=== PATIENT | female | born 1995 | race Caucasian/White ===

== ENCOUNTER 2016-09-06 15:10 | Inpatient (IN) | payer OTHER ==
--- NOTE | 2016-09-06 16:00 | L&D Flow Sheet ---
LD Flowsheet Datetime Report Generated by CPN: 09/06/2016 16:00 Datetime: 09/06/2016 15:57 Uterine Activity Frequency (min): 5 (Darline Michael, RN) Vaginal Bleeding: None (Darline Michael, RN) Datetime: 09/06/2016 15:50 Communication Communication Comments: Dr Taylor reviewed EFM. Plan of care discussed. Will continue to monitor. (Darline Michael, RN) Datetime: 09/06/2016 15:37 Vaginal Exam Dilatation (cm): 1.0 (Darline Rodriguez RN) Effacement (%): 40 (Darline Rodriguez RN) Station: -2 (Darline Rodriguez RN) Exam by: Lance Rodriguez RN (Darline Rodriguez RN) Vaginal Bleeding: None (Darline Rodriguez RN) Cervix, Consistency: Moderate (Darline Rodriguez RN) Cervix, Position: Midposition (Darline Rodriguez RN) Datetime: 09/06/2016 15:33 Vital Signs NBP Sys/Ashleigh/Mean (mmHg): 119 (QS system process) : 76 (QS system process) : 94 (QS system process) Pulse: 120 (QS system process) Respirations: 18 (Darline Rodriguez RN)
[2016-09-06 16:02] LABS: APPEARANCE,URINE CLOUDY; BILIRUBIN,URINE NEGATIVE (NEGATIVE); GLUCOSE, URINE NEGATIVE (NEGATIVE); KETONES,URINE TRACE mg/dL (NEGATIVE); LEUKOCYTE ESTERASE,URINE MODERATE (NEGATIVE); NITRITE,URINE NEGATIVE (NEGATIVE); PROTEIN,URINE 100 mg/dL (NEGATIVE); URINE SPECIFIC GRAVITY 1.026; UROBILINOGEN,URINE NEGATIVE mg/dL (<2.0)
[2016-09-06 16:27] LABS: URINE BARBITURATES SCREEN NEGATIVE; URINE METHADONE SCREEN NEGATIVE; URINE OPIATES LOW NEGATIVE; URINE PHENCYCLIDINE SCREEN NEGATIVE
--- NOTE | 2016-09-06 18:00 | L&D Flow Sheet ---
LD Flowsheet Datetime Report Generated by CPN: 09/06/2016 18:00 Datetime: 09/06/2016 17:29 Communication Comments: Risk benefits of IOL discussed for postdates. Different methods of IOl discussed, questions answered. Family to discuss options and let staff know decision. (Darline Rodriguez RN) Datetime: 09/06/2016 17:27 Dilatation (cm): 1.0 (Darline Rodriguez RN) Effacement (%): 50 (Darline Rodriguez RN) Station: -1 (Darline Rodriguez RN) Exam by: Dr Taylor (Darline Rodriguez, KEVEN) Vaginal Bleeding: None (Darline Rodriguez RN) Cervix, Consistency: Soft (Darline Rodriguez RN) Cervix, Position: Midposition (Darline Rodriguez RN) Dilatation (cm): 1-2 cm (Darline Rodriguez RN) Effacement: 40-50_ effaced (Darline Rodriguez RN) Station: minus 2 (Darline Rodriguez RN) Consistency: Soft (Darline Rodriguez RN) Position: Midposition (Darline Rodriguez RN) Total Alston's Score: 6 (QS system process) : 5-8 = Small percentage of induction failure (QS system process) Datetime: 09/06/2016 17:26 Communication Comments: Dr Stafford at bedside (Darline Rodriguez RN) Datetime: 09/06/2016 17:25 NBP Sys/Ashleigh/Mean (mmHg): 110 (QS system process) : 71 (QS system process) : 86 (QS system process) Pulse: 93 (QS system process) Respirations: 16 (Darline Rodriguez RN) LaborFlag: Antepartum (QS system process) Datetime: 09/06/2016 16:03 Monitor Mode: External; Palpation (Darline Rodriguez RN) Frequency (min): 6-7 (Darline Rodriguez RN) Quality: Mild (Darline Rodriguez RN) Duration (sec): 50-70 (Darline Rodriguez RN) Resting Tone (Palpate): Relaxed (Darline Rodriguez RN) Monitor Mode: External US (Darline Rodriguez RN) FHR Baseline Rate : 120 (Darline Rodriguez RN) Variability: Moderate 6-25 bpm (Darline Rodriguez RN) Accelerations: 15X15 (Darline Rodriguez RN) Decelerations: None (Darline Rodriguez RN) Comments: monitors removed, up to ambulate (Darline Rodriguez RN)
[2016-09-06] MEDS ORDERED: MISOPROSTOL 0.1 MG TABLET PO PRN (18:11)
[2016-09-06] MEDS ORDERED: NALBUPHINE HCL INJ 10 MG/1 ML AMPULE IV PRN (18:11)
[2016-09-06 18:51] LABS: ABSOLUTE BASOPHILS # (AUTO) 0.1 10^3/uL (0.0-0.2); ABSOLUTE EOSINOPHILS # (AUTO) 0.1 10^3/uL (0.0-0.6); ABSOLUTE LYMPHOCYTES (AUTO) 1.6 10^3/uL (0.5-4.7); ABSOLUTE MONOCYTES (AUTO) 0.7 10^3/uL (0.1-1.4); ABSOLUTE NEUT (AUTO) 7.9 10^3/uL (1.7-8.2); BASOPHILS % (AUTO) 0.7 % (0-2); EOSINOPHILS % (AUTO) 0.6 % (0-6); HEMATOCRIT 33.2 % (36.0-47.0); HGB HCT DIFFERENCE -0.2; LYMPHOCYTES % (AUTO) 15.7 % (13-45); MEAN CORPUSCULAR HEMOGLOBIN 29.9 pg (27.0-33.4); MEAN CORPUSCULAR HGB CONC 33.2 g/dL (32.0-36.0); MEAN CORPUSCULAR VOLUME 90 fl (80-97); RED BLOOD COUNT 3.67 10^6/uL (3.72-5.28); WHITE BLOOD COUNT 10.4 10^3/uL (4.0-10.5)
[2016-09-06] MEDS ORDERED: PENICILLIN G POTASSIUM 5,000,000 UNIT in DEXTROSE 5%-WATER 100 ML IV ONE (19:00)
[2016-09-06] MEDS ORDERED: PENICILLIN G-K 5 MILLION UNIT VIAL ONE ×2 (19:14→23:26)
[2016-09-06] MEDS: RINGERS SOLUTION,LACTATED 1,000 ML IV PRN ×2 (19:27→23:47)
[2016-09-06] MEDS ORDERED: NALBUPHINE HCL INJ 10 MG/1 ML AMPULE ONE (19:39)
[2016-09-06] MEDS ORDERED: MISOPROSTOL 0.1 MG TABLET ONE (19:41)
--- NOTE | 2016-09-06 20:00 | L&D Flow Sheet ---
LD Flowsheet Datetime Report Generated by CPN: 09/06/2016 20:00 Datetime: 09/06/2016 19:48 Analgesics/Sedatives: Nubain (mg) @ 10 (Adri Lattibeaudeir, RN) Cervical Ripening Agents: Cytotec @ 50 mcg (Adri Lattibeaudeir, RN) Datetime: 09/06/2016 19:30 Monitor Mode: External; Palpation (Darline Rodriguez RN) Frequency (min): Irreg (Darline Rodriguez RN) Quality: Mild (Darline Michael, RN) Duration (sec): 50-70 (Darline Rodriguez RN) Resting Tone (Palpate): Relaxed (Darline Rodriguez RN) Monitor Mode: External US (Darline Rodriguez RN) FHR Baseline Rate : 120 (Darline Rodriguez RN) Variability: Moderate 6-25 bpm (Darline Rodriguez, RN) Accelerations: 15X15 (Darline Rodriguez RN) Decelerations: None (Darline Rodriguez RN) Datetime: 09/06/2016 19:20 Dilatation (cm): 1.0 (Darline Rodriguez RN) Effacement (%): 50 (Darline Rodriguez RN) Station: -1 (Darline Rodriguez RN) Exam by: Dr Taylor (Darline Rodriguez RN) Cervix, Consistency: Soft (Darline Rodriguez RN) Cervix, Position: Midposition (Darline Rodriguez RN) Vaginal Exam Comments: Cooks catheter placed w/ 80ml saline in each bulb (Darline Rodriguez RN) Antibiotics: Penicillin IV (Units) @ 5million units IVPB (Darline Rodriguez RN) Datetime: 09/06/2016 19:09 I/O Interventions: Up to BR (Darline Michael, RN) Datetime: 09/06/2016 19:00 Monitor Mode: External; Palpation (Darline Michael, RN) Frequency (min): 6-7 (Darline Michael, RN) Quality: Mild (Darline Michael, RN) Duration (sec): 50-70 (Darline Michael, RN) Resting Tone (Palpate): Relaxed (Darline Michael, RN) Monitor Mode: External US (Darline Michael, RN) FHR Baseline Rate : 120 (Darline Michael, RN) Variability: Moderate 6-25 bpm (Darline Michael, RN) Accelerations: 15X15 (Darline Michael, RN) Decelerations: None (Darline Michael, RN) Datetime: 09/06/2016 18:48 IV/Blood Work: IV Started; IV Infusing per Order; New IV Bag Hung; IV Bag Number @ 1 (Darline Michael, RN) Datetime: 09/06/2016 18:30 Monitor Mode: External; Palpation (Darline Michael, RN) Frequency (min): 6-7 (Darline Michael, RN) Quality: Mild (Darline Michael, RN) Duration (sec): 50-70 (Darline Michael, RN) Resting Tone (Palpate): Relaxed (Darline Michael, RN) Monitor Mode: External US (Darline Michael, RN) FHR Baseline Rate : 120 (Darline Michael, RN) Variability: Moderate 6-25 bpm (Darline Michael, RN) Accelerations: 15X15 (Darline Michael, RN) Decelerations: None (Darline Michael, RN) Datetime: 09/06/2016 18:00 Monitor Mode: External; Palpation (Darline Michael, RN) Frequency (min): Irreg (Darline Michael, RN) Quality: Mild (Darline Michael, RN) Duration (sec): 50-70 (Darline Michael, RN) Resting Tone (Palpate): Relaxed (Darline Michael, RN) Monitor Mode: External US (Darline Michael, RN) FHR Baseline Rate : 120 (Darline Rodriguez RN) Variability: Moderate 6-25 bpm (Darline Rodriguez RN) Accelerations: 15X15 (Darline Rodriguez RN) Decelerations: None (Darline Rodriguez RN)
--- NOTE | 2016-09-06 22:00 | L&D Flow Sheet ---
LD Flowsheet Datetime Report Generated by CPN: 09/06/2016 22:00 Datetime: 09/06/2016 21:59 Pulse: 92 (QS system process) Pulse: 87 (QS system process) SpO2 (%): 98 (QS system process) SpO2 (%): 93 (QS system process) LaborFlag: Antepartum (QS system process) Datetime: 09/06/2016 21:54 Pulse: 95 (QS system process) SpO2 (%): 99 (QS system process) LaborFlag: Antepartum (QS system process) Datetime: 09/06/2016 21:49 Pulse: 93 (QS system process) SpO2 (%): 98 (QS system process) LaborFlag: Antepartum (QS system process) Datetime: 09/06/2016 21:44 Pulse: 88 (QS system process) SpO2 (%): 98 (QS system process) LaborFlag: Antepartum (QS system process) Datetime: 09/06/2016 21:39 Pulse: 83 (QS system process) SpO2 (%): 96 (QS system process) LaborFlag: Antepartum (QS system process) Datetime: 09/06/2016 21:34 Pulse: 80 (QS system process) SpO2 (%): 97 (QS system process) LaborFlag: Antepartum (QS system process) Datetime: 09/06/2016 21:29 Pulse: 84 (QS system process) SpO2 (%): 97 (QS system process) LaborFlag: Antepartum (QS system process) Datetime: 09/06/2016 21:24 Pulse: 83 (QS system process) SpO2 (%): 96 (QS system process) LaborFlag: Antepartum (QS system process) Datetime: 09/06/2016 21:19 Pulse: 81 (QS system process) SpO2 (%): 97 (QS system process) LaborFlag: Antepartum (QS system process) Datetime: 09/06/2016 21:14 Pulse: 81 (QS system process) SpO2 (%): 96 (QS system process) LaborFlag: Antepartum (QS system process) Datetime: 09/06/2016 21:09 Pulse: 78 (QS system process) SpO2 (%): 97 (QS system process) LaborFlag: Antepartum (QS system process)
[2016-09-06] MEDS ORDERED: FENTANYL/BUPIVACAINE/NS/PF 200 MCG/100 ML RTUINJ EPI ONE (22:33)
[2016-09-06] MEDS ORDERED: EPHEDRINE SULFATE INJ 50 MG/1 ML AMPULE ONE (22:33)
[2016-09-06] MEDS ORDERED: BUPIVACAINE HCL 0.25 % INJ/PF (2.5 MG/1 ML) 30 ML VIAL ONE (22:34)
[2016-09-06] MEDS: PENICILLIN G POTASSIUM 2,500,000 UNIT in DEXTROSE 5%-WATER 50 ML IV SCH (23:47)
[2016-09-06] MEDS ORDERED: ONDANSETRON HCL INJ/PF 4 MG/2 ML SDV ONE (23:49)
[2016-09-07] MEDS ORDERED: EPHEDRINE SULFATE INJ 50 MG/1 ML AMPULE IV PRN (00:08)
[2016-09-07] MEDS ORDERED: BENZOIN/ALOE VERA/STORAX/TOLU TINCTURE 60 ML TP PRN (00:08)
[2016-09-07] MEDS ORDERED: BUPIVACAINE HCL 0.25 % INJ/PF (2.5 MG/1 ML) 30 ML VIAL INFIL ONE (00:08)
[2016-09-07] MEDS ORDERED: EPHEDRINE SULFATE INJ 50 MG/1 ML AMPULE IV ONE (00:08)
[2016-09-07] MEDS ORDERED: OXYTOCIN/NORMAL SALINE 20 UNIT/1,000 ML RTUINJ ONE ×2 (03:01→14:53)
[2016-09-07] MEDS ORDERED: OXYTOCIN/NORMAL SALINE 1,000 ML IV PRN ×3 (03:03→14:47)
[2016-09-07] MEDS: FENTANYL/BUPIVACAINE/NS/PF 100 ML EPI PRN ×3 (03:18→08:01)
[2016-09-07] MEDS ORDERED: PENICILLIN G-K 5 MILLION UNIT VIAL ONE ×3 (03:20→11:06)
[2016-09-07] MEDS: DEXTROSE 5%-LACTATED RINGERS 1,000 ML IV PRN ×2 (04:11→08:01)
[2016-09-07] MEDS: PENICILLIN G POTASSIUM 2,500,000 UNIT in DEXTROSE 5%-WATER 50 ML IV SCH ×2 (04:15→06:50)
[2016-09-07] MEDS: RINGERS SOLUTION,LACTATED 1,000 ML IV PRN (04:16)
[2016-09-07] MEDS ORDERED: ONDANSETRON HCL INJ/PF 4 MG/2 ML SDV IV ONE (07:58)
--- NOTE | 2016-09-07 08:01 | L&D Flow Sheet ---
LD Flowsheet Datetime Report Generated by CPN: 09/07/2016 08:00 Datetime: 09/07/2016 07:55 Provider Reviewed Strip: Yes (Jhonny Taylor RN) Strip Reviewed by: Dr Taylor (Jhonny Taylor RN) Provider Notified (Name): Dr Taylor (Jhonny Taylor RN) Notification Reason: Status Update; Status; Labor Status; Uterine Activity (Jhonny Taylor RN) Communication Comments: Dr Taylor updated on pt; notified of emesis x1; orders for zofran 4mg IVP now; may increase pitocin as ordered. (Jhonny Taylor RN) Datetime: 09/07/2016 07:53 Temperature (F): 98.6 (Jhonny Taylor RN) Temperature (C): 37.0 (QS system process) LaborFlag: Antepartum (QS system process) Datetime: 09/07/2016 07:51 NBP Sys/Ashleigh/Mean (mmHg): 101 (QS system process) : 61 (QS system process) : 71 (QS system process) Pulse: 81 (QS system process) LaborFlag: Antepartum (QS system process) Datetime: 09/07/2016 07:48 Instructional Method: Demo; Verbal; Patient Instructed; Family/Support Person Instructed; Verbalized Understanding (Jhonny Taylor RN) Plan of Care: Plan of Care Discussed; Vaginal Delivery; Induction (Jhonny Taylor RN) Unit Routine: Mallard to Room; Call Stephens; Bed; Visiting Policy; Waiting Areas; Security; Phone/Cell Phone Use; Photography; Unit Personnel; Handwashing; Flu/Illness Precautions; Monitoring; IV Pumps; Safety/Fall Risk Prevention; Diet/Nutrition Services; Routine Time Outs; Medications (Jhonny Taylor RN) Labor/Induction: Labor Stages; Induction; Antibiotic Use (Jhonny Taylor RN) Pain Management: Epidural; PRN Medications; Pain Scale/Goals; Comfort Measures (Jhonny Taylor RN) Medications: Antibiotics; Pitocin (Jhonny Taylor RN) Related: Common Discomforts of ; Maternal Physical Changes; Maternal Emotional Changes; Nutrition; Hydration; Activity and Rest (Jhonny Taylor RN) Datetime: 09/07/2016 07:40 Patient Position/Activity: Left Lateral (Jhonny Taylor RN) Datetime: 09/07/2016 07:39 Pain Presence: None/Denies (Jhonny Taylor RN) Pain Relief Measures: Epidural Given (Jhonny Taylor RN) Dilatation (cm): 5.0 (Jhonny Taylor RN) Effacement (%): 70 (Jhonny Taylor RN) Station: -1 (Jhonny Taylor, RN) Exam by: Carmel Taylor RN (Jhonny Taylor, RN) Vaginal Bleeding: Normal Show (Jhonny Taylor RN) Cervix, Consistency: Soft (Jhonny Taylor RN) Cervix, Position: Midposition (Jhonny Taylor, RN) IV/Blood Work: New IV Bag Hung (Jhonny Taylor, RN) Hygiene: Hayde Care; Underpad Changed; Peripad Changed; Gown Changed (Jhonny Taylor, RN) I/O Interventions: Ice Chips Given (Jhonny Taylor, RN) Patient Care Comments: LR 125ml/hr (Jhonny Taylor, KEVEN) Anesthesia Level Check: T10- Umbilicus (Jhonny Taylor, KEVEN) Communication: RN at Bedside; RN Reviewed Strip (Jhonny Taylor RN) LaborFlag: Antepartum (QS system process) Datetime: 09/07/2016 07:27 Communication Comments: Report given to Sarah Taylor RN and care relinquished. (Adri Mariscal RN) Datetime: 09/07/2016 07:15 Monitor Mode: External (Adri Lattibeaudeir, RN) Frequency (min): 2.5-3.5 (Adri Lattibeaudeir, RN) Quality: Mild/Moderate (Adri Lattibeaudeir, RN) Duration (sec): 60-80 (Adri Lattibeaudeir, RN) Resting Tone (Palpate): Relaxed (Adri Lattibeaudeir, RN) Monitor Mode: External US (Adri Lattibeaudeir, RN) FHR Baseline Rate : 115 (Adri Lattibeaudeir, RN) Variability: Moderate 6-25 bpm (Adri Lattibeaudeir, RN) Accelerations: 15X15 (Adri Lattibeaudeir, RN) Decelerations: Early (Adri Lattibeaudeir, RN) Pitocin (milliunit): Pitocin Remains (milliunits) @ 8 (Adri Lattibeaudeir, RN) Datetime: 09/07/2016 07:00 Monitor Mode: External (Adri Lattibeaudeir, RN) Frequency (min): 2-3 (Adri Lattibeaudeir, RN) Quality: Mild/Moderate (Adri Lattibeaudeir, RN) Duration (sec): 60-80 (Adri Lattibeaudeir, RN) Resting Tone (Palpate): Relaxed (Adri Lattibeaudeir, RN) Monitor Mode: External US (Adri Lattibeaudeir, RN) FHR Baseline Rate : 115 (Adri Lattibeaudeir, RN) Variability: Moderate 6-25 bpm (Adri Lattibeaudeir, RN) Accelerations: 15X15 (Adri Lattibeaudeir, RN) Decelerations: Early (Adri Lattibeaudeir, RN) Pitocin (milliunit): Pitocin Increased to (milliunits) @ 8 (Adri Lattibeaudeir, RN) Antibiotics: Penicillin IV (Units) @ 2.5 million units (Adri Lattibeaudeir, RN) Datetime: 09/07/2016 06:58 Communication Comments: Dr. Taylor reviewed strip and stated okay to increase pitocin. (Adri Lattibeaudeir, RN) Datetime: 09/07/2016 06:57 NBP Sys/Ashleigh/Mean (mmHg): 92 (QS system process) : 54 (QS system process) : 67 (QS system process) Pulse: 77 (QS system process) LaborFlag: Antepartum (QS system process) Datetime: 09/07/2016 06:45 Monitor Mode: External (Adri Lattibeaudeir, RN) Frequency (min): 1.5-5 (Adri Lattibeaudeir, RN) Quality: Mild/Moderate (Adri Lattibeaudeir, RN) Duration (sec): 50-70 (Adri Lattibeaudeir, RN) Resting Tone (Palpate): Relaxed (Adri Lattibeaudeir, RN) Monitor Mode: External US (Adri Lattibeaudeir, RN) FHR Baseline Rate : 110 (Adri Lattibeaudeir, RN) Variability: Moderate 6-25 bpm (Adri Lattibeaudeir, RN) Accelerations: 15X15 (Adri Lattibeaudeir, RN) Decelerations: Early (Adri Lattibeaudeir, RN) Pitocin (milliunit): Pitocin Remains (milliunits) @ 6 (Adri Lattibeaudeir, RN) Datetime: 09/07/2016 06:42 NBP Sys/Ashleigh/Mean (mmHg): 93 (QS system process) : 60 (QS system process) : 71 (QS system process) Pulse: 73 (QS system process) LaborFlag: Antepartum (QS system process) Datetime: 09/07/2016 06:30 Monitor Mode: External (Adri Lattibeaudeir, RN) Frequency (min): 1.5-6 (Adri Lattibeaudeir, RN) Quality: Mild/Moderate (Adri Lattibeaudeir, RN) Duration (sec): 50-80 (Adri Lattibeaudeir, RN) Resting Tone (Palpate): Relaxed (Adri Lattibeaudeir, RN) Monitor Mode: External US (Adri Lattibeaudeir, RN) FHR Baseline Rate : 110 (Adri Lattibeaudeir, RN) Variability: Moderate 6-25 bpm (Adri Lattibeaudeir, RN) Accelerations: None (Adri Lattibeaudeir, RN) Decelerations: Early; Prolonged (Annotations: prolonged decel x with stacked contractions) (Adri Lattibeaudeir, RN) Pitocin (milliunit): Pitocin Remains (milliunits) @ 6 (Adri Lattibeaudeir, RN) Datetime: 09/07/2016 06:27 NBP Sys/Ashleigh/Mean (mmHg): 93 (QS system process) : 56 (QS system process) : 69 (QS system process) Pulse: 76 (QS system process) LaborFlag: Antepartum (QS system process) Datetime: 09/07/2016 06:15 Monitor Mode: External (Adri Lattibeaudeir, RN) Frequency (min): 2-4 (Adri Lattibeaudeir, RN) Quality: Mild/Moderate (Adri Lattibeaudeir, RN) Duration (sec): 50-70 (Adri Lattibeaudeir, RN) Resting Tone (Palpate): Relaxed (Adri Lattibeaudeir, RN) Monitor Mode: External US (Adri Lattibeaudeir, RN) FHR Baseline Rate : 110 (Adri Lattibeaudeir, RN) Variability: Moderate 6-25 bpm (Adri Lattibeaudeir, RN) Accelerations: 15X15 (Adri Lattibeaudeir, RN) Decelerations: Early (Adri Lattibeaudeir, RN) Pitocin (milliunit): Pitocin Remains (milliunits) @ 6 (Adri Lattibeaudeir, RN) Datetime: 09/07/2016 06:12 NBP Sys/Ashleigh/Mean (mmHg): 90 (QS system process) : 51 (QS system process) : 65 (QS system process) Pulse: 76 (QS system process) LaborFlag: Antepartum (QS system process) Datetime: 09/07/2016 06:00 Monitor Mode: External (Adri Lattibeaudeir, RN) Frequency (min): 1.5-4.5 (Adri Lattibeaudeir, RN) Quality: Mild/Moderate (Adri Lattibeaudeir, RN) Duration (sec): 60-80 (Adri Lattibeaudeir, RN) Resting Tone (Palpate): Relaxed (Adri Lattibeaudeir, RN) Monitor Mode: External US (Adri Lattibeaudeir, RN) FHR Baseline Rate : 115 (Adri Lattibeaudeir, RN) Variability: Moderate 6-25 bpm (Adri Lattibeaudeir, RN) Accelerations: 15X15 (Adri Lattibeaudeir, RN) Decelerations: Early (Adri Lattibeaudeir, RN) Pitocin (milliunit): Pitocin Remains (milliunits) @ 6 (Adri Lattibeaudeir, RN) Datetime: 09/07/2016 05:57 NBP Sys/Ashleigh/Mean (mmHg): 90 (QS system process) : 54 (QS system process) : 67 (QS system process) Pulse: 80 (QS system process) LaborFlag: Antepartum (QS system process) Datetime: 09/07/2016 05:45 Monitor Mode: External (Adir Lattibeaudeir, RN) Frequency (min): 2-4 (Adri Lattibeaudeir, RN) Quality: Mild/Moderate (Adri Lattibeaudeir, RN) Duration (sec): 50-70 (Adri Lattibeaudeir, RN) Resting Tone (Palpate): Relaxed (Adri Lattibeaudeir, RN) Monitor Mode: External US (Adri Lattibeaudeir, RN) FHR Baseline Rate : 115 (Adri Lattibeaudeir, RN) Variability: Moderate 6-25 bpm (Adri Lattibeaudeir, RN) Accelerations: 15X15 (Adri Lattibeaudeir, RN) Pitocin (milliunit): Pitocin Remains (milliunits) @ 6 (Adri Lattibeaudeir, RN) Datetime: 09/07/2016 05:43 NBP Sys/Ashleigh/Mean (mmHg): 89 (QS system process) : 50 (QS system process) : 63 (QS system process) Pulse: 79 (QS system process) LaborFlag: Antepartum (QS system process) Datetime: 09/07/2016 05:37 Pitocin (milliunit): Pitocin Increased to (milliunits) @ 6 (Adri Lattibeaudeir, RN) Datetime: 09/07/2016 05:30 Monitor Mode: External (Adri Lattibeaudeir, RN) Frequency (min): 2-4 (Adri Lattibeaudeir, RN) Quality: Mild/Moderate (Adri Lattibeaudeir, RN) Duration (sec): 60-80 (Adri Lattibeaudeir, RN) Resting Tone (Palpate): Relaxed (Adri Lattibeaudeir, RN) Monitor Mode: External US (Adri Lattibeaudeir, RN) FHR Baseline Rate : 110 (Adri Lattibeaudeir, RN) Variability: Moderate 6-25 bpm (Adri Lattibeaudeir, RN) Accelerations: 15X15 (Adri Lattibeaudeir, RN) Pitocin (milliunit): Pitocin Remains (milliunits) @ 4 (Adri Lattibeaudeir, RN) Datetime: 09/07/2016 05:27 NBP Sys/Ashleigh/Mean (mmHg): 92 (QS system process) : 54 (QS system process) : 66 (QS system process) Pulse: 74 (QS system process) LaborFlag: Antepartum (QS system process) Datetime: 09/07/2016 05:15 Monitor Mode: External (Adri Lattibeaudeir, RN) Frequency (min): 2-4 (Adri Lattibeaudeir, RN) Quality: Mild/Moderate (Adri Lattibeaudeir, RN) Duration (sec): 60-80 (Adri Lattibeaudeir, RN) Resting Tone (Palpate): Relaxed (Adri Lattibeaudeir, RN) Monitor Mode: External US (Adri Lattibeaudeir, RN) FHR Baseline Rate : 110 (Adri Lattibeaudeir, RN) Variability: Moderate 6-25 bpm (Adri Lattibeaudeir, RN) Decelerations: Early (Adri Lattibeaudeir, RN) Pitocin (milliunit): Pitocin Remains (milliunits) @ 4 (Adri Lattibeaudeir, RN) Datetime: 09/07/2016 05:12 NBP Sys/Ashleigh/Mean (mmHg): 96 (QS system process) : 57 (QS system process) : 70 (QS system process) Pulse: 77 (QS system process) LaborFlag: Antepartum (QS system process) Datetime: 09/07/2016 04:59 Monitor Mode: External (Adri Lattibeaudeir, RN) Frequency (min): 3-5 (Adri Lattibeaudeir, RN) Quality: Mild/Moderate (Adri Lattibeaudeir, RN) Duration (sec): 50-80 (Adri Lattibeaudeir, RN) Resting Tone (Palpate): Relaxed (Adri Lattibeaudeir, RN) Monitor Mode: External US (Adri Lattibeaudeir, RN) FHR Baseline Rate : 110 (Adri Lattibeaudeir, RN) Variability: Moderate 6-25 bpm (Adri Lattibeaudeir, RN) Pitocin (milliunit): Pitocin Remains (milliunits) @ 4 (Adri Lattibeaudeir, RN) Datetime: 09/07/2016 04:57 NBP Sys/Ashleigh/Mean (mmHg): 92 (QS system process) : 56 (QS system process) : 69 (QS system process) Pulse: 69 (QS system process) LaborFlag: Antepartum (QS system process) Datetime: 09/07/2016 04:53 Pitocin (milliunit): Pitocin Increased to (milliunits) @ 4 (Adri Lattibeaudeir, RN) Datetime: 09/07/2016 04:45 Monitor Mode: External (Adri Lattibeaudeir, RN) Frequency (min): 2-5.5 (Adri Lattibeaudeir, RN) Quality: Mild/Moderate (Adri Lattibeaudeir, RN) Duration (sec): 60-80 (Adri Lattibeaudeir, RN) Resting Tone (Palpate): Relaxed (Adri Lattibeaudeir, RN) Monitor Mode: External US (Adri Lattibeaudeir, RN) FHR Baseline Rate : 110 (Adri Lattibeaudeir, RN) Variability: Moderate 6-25 bpm (Adri Lattibeaudeir, RN) Accelerations: 15X15 (Adri Lattibeaudeir, RN) Decelerations: Early (Adri Lattibeaudeir, RN) Pitocin (milliunit): Pitocin Remains (milliunits) @ 2 (Adri Lattibeaudeir, RN) Datetime: 09/07/2016 04:42 NBP Sys/Ashleigh/Mean (mmHg): 91 (QS system process) : 54 (QS system process) : 66 (QS system process) Pulse: 77 (QS system process) LaborFlag: Antepartum (QS system process) Datetime: 09/07/2016 04:30 Monitor Mode: External (Adri Lattibeaudeir, RN) Frequency (min): 5 (Adri Lattibeaudeir, RN) Quality: Mild/Moderate (Adri Lattibeaudeir, RN) Duration (sec): 60-80 (Adri Lattibeaudeir, RN) Resting Tone (Palpate): Relaxed (Adri Lattibeaudeir, RN) Monitor Mode: External US (Adri Lattibeaudeir, RN) FHR Baseline Rate : 115 (Adri Lattibeaudeir, RN) Variability: Moderate 6-25 bpm (Adri Lattibeaudeir, RN) Accelerations: 15X15 (Adri Lattibeaudeir, RN) Pitocin (milliunit): Pitocin Remains (milliunits) @ 2 (Adri Lattibeaudeir, RN) Datetime: 09/07/2016 04:28 NBP Sys/Ashleigh/Mean (mmHg): 95 (QS system process) : 55 (QS system process) : 69 (QS system process) Pulse: 73 (QS system process) LaborFlag: Antepartum (QS system process) Datetime: 09/07/2016 04:15 Monitor Mode: External (Adri Lattibeaudeir, RN) Frequency (min): 6-7 (Adri Lattibeaudeir, RN) Quality: Mild/Moderate (Adri Lattibeaudeir, RN) Duration (sec): 60-90 (Adri Lattibeaudeir, RN) Resting Tone (Palpate): Relaxed (Adri Lattibeaudeir, RN) Monitor Mode: External US (Adri Lattibeaudeir, RN) FHR Baseline Rate : 115 (Adri Lattibeaudeir, RN) Variability: Moderate 6-25 bpm (Adri Lattibeaudeir, RN) Accelerations: 15X15 (Adri Lattibeaudeir, RN) Pitocin (milliunit): Pitocin Remains (milliunits) @ 2 (Adri Lattibeaudeir, RN) Datetime: 09/07/2016 04:13 NBP Sys/Ashleigh/Mean (mmHg): 105 (QS system process) : 55 (QS system process) : 73 (QS system process) Pulse: 86 (QS system process) LaborFlag: Antepartum (QS system process) Datetime: 09/07/2016 04:09 Pitocin (milliunit): Pitocin Started (milliunits) @ 2 (Adri Lattibeaudeir, RN) Datetime: 09/07/2016 04:00 Monitor Mode: External (Adri Lattibeaudeir, RN) Frequency (min): 5-7.5 (Adri Lattibeaudeir, RN) Quality: Mild/Moderate (Adri Lattibeaudeir, RN) Duration (sec): 60-90 (Adri Lattibeaudeir, RN) Resting Tone (Palpate): Relaxed (Adri Lattibeaudeir, RN) Monitor Mode: External US (Adri Lattibeaudeir, RN) FHR Baseline Rate : 110 (Adri Lattibeaudeir, RN) Variability: Moderate 6-25 bpm (Adri Lattibeaudeir, RN) Accelerations: 15X15 (Adri Lattibeaudeir, RN) Datetime: 09/07/2016 03:57 NBP Sys/Ashleigh/Mean (mmHg): 94 (QS system process) : 61 (QS system process) : 72 (QS system process) Pulse: 84 (QS system process) LaborFlag: Antepartum (QS system process) Datetime: 09/07/2016 03:43 NBP Sys/Ashleigh/Mean (mmHg): 97 (QS system process) : 60 (QS system process) : 73 (QS system process) Pulse: 77 (QS system process) LaborFlag: Antepartum (QS system process) Datetime: 09/07/2016 03:30 Monitor Mode: External (Adri Lattibeaudeir, RN) Frequency (min): 5-10 (Adri Lattibeaudeir, RN) Quality: Mild/Moderate (Adri Lattibeaudeir, RN) Duration (sec): 60-90 (Adri Lattibeaudeir, RN) Resting Tone (Palpate): Relaxed (Adri Lattibeaudeir, RN) Monitor Mode: External US (Adri Lattibeaudeir, RN) FHR Baseline Rate : 110 (Adri Lattibeaudeir, RN) Variability: Moderate 6-25 bpm (Adri Lattibeaudeir, RN) Accelerations: 15X15 (Adri Lattibeaudeir, RN) Datetime: 09/07/2016 03:27 NBP Sys/Ashleigh/Mean (mmHg): 94 (QS system process) : 57 (QS system process) : 69 (QS system process) Pulse: 72 (QS system process) LaborFlag: Antepartum (QS system process) Datetime: 09/07/2016 03:12 NBP Sys/Ashleigh/Mean (mmHg): 92 (QS system process) : 58 (QS system process) : 70 (QS system process) Pulse: 80 (QS system process) LaborFlag: Antepartum (QS system process) Datetime: 09/07/2016 03:03 Communication Comments: Order received from Dr. Taylor to start Pitocin at 2 mu/min. (Adri Mariscal, KEVEN) Datetime: 09/07/2016 03:00 Monitor Mode: External (Adri Mariscal, RN) Frequency (min): 5.5-6.5 (Adri Mariscal RN) Quality: Mild/Moderate (Adri Lattibeaudeir, RN) Duration (sec): 70-90 (Adri Lattibeaudeir, RN) Resting Tone (Palpate): Relaxed (Adri Lattibeaudeir, RN) Monitor Mode: External US (Adri Lattibeaudeir, RN) FHR Baseline Rate : 110 (Adri Lattibeaudeir, RN) Variability: Moderate 6-25 bpm (Adri Lattibeaudeir, RN) Accelerations: 15X15 (Adri Lattibeaudeir, RN) Datetime: 09/07/2016 02:55 Dilatation (cm): 5.5 (Adri Lattibeareillyir, RN) Effacement (%): 75 (Adri Mariscal, RN) Station: -2 (Adri Mariscal, RN) Exam by: Dr. Taylor (Adri Mariscal, RN) Membrane Status: Ruptured (Adri Isbelltibisrael, RN) Membranes Ruptured Date/Time: 09/07/2016 02:55 (Kimberly Sr RN) Membranes Rupture Method: Artificial (Adri Lattibeaudeir, RN) Amniotic Fluid Color: Clear (Adri Lattibeaudeir, RN) Amniotic Fluid Amount: Moderate (Ardi Lattibeaudeir, RN) Datetime: 09/07/2016 02:51 NBP Sys/Ashleigh/Mean (mmHg): 95 (QS system process) : 59 (QS system process) : 72 (QS system process) Pulse: 81 (QS system process) LaborFlag: Antepartum (QS system process) Datetime: 09/07/2016 02:46 NBP Sys/Ashleigh/Mean (mmHg): 97 (QS system process) : 58 (QS system process) : 73 (QS system process) Pulse: 80 (QS system process) LaborFlag: Antepartum (QS system process) Datetime: 09/07/2016 02:41 NBP Sys/Ashleigh/Mean (mmHg): 92 (QS system process) : 61 (QS system process) : 72 (QS system process) Pulse: 82 (QS system process) LaborFlag: Antepartum (QS system process) Datetime: 09/07/2016 02:36 NBP Sys/Ashleigh/Mean (mmHg): 90 (QS system process) : 60 (QS system process) : 70 (QS system process) Pulse: 82 (QS system process) LaborFlag: Antepartum (QS system process) Datetime: 09/07/2016 02:31 NBP Sys/Ashleigh/Mean (mmHg): 94 (QS system process) : 66 (QS system process) : 75 (QS system process) Pulse: 96 (QS system process) LaborFlag: Antepartum (QS system process) Datetime: 09/07/2016 02:30 Monitor Mode: External (Adri Lattibeaudeir, RN) Frequency (min): 6-8.5 (Adri Lattibeaudeir, RN) Quality: Mild/Moderate (Adri Lattibeaudeir, RN) Duration (sec): 80-100 (Adri Lattibeaudeir, RN) Resting Tone (Palpate): Relaxed (Adri Lattibeaudeir, RN) Monitor Mode: External US (Adri Lattibeaudeir, RN) FHR Baseline Rate : 115 (Adri Lattibeaudeir, RN) Variability: Moderate 6-25 bpm (Adri Lattibeaudeir, RN) Accelerations: 15X15 (Adri Lattibeaudeir, RN) Datetime: 09/07/2016 02:27 NBP Sys/Ashleigh/Mean (mmHg): 92 (QS system process) : 66 (QS system process) : 75 (QS system process) Pulse: 81 (QS system process) LaborFlag: Antepartum (QS system process) Datetime: 09/07/2016 02:23 NBP Sys/Ashleigh/Mean (mmHg): 94 (QS system process) : 59 (QS system process) : 71 (QS system process) Pulse: 77 (QS system process) LaborFlag: Antepartum (QS system process) Datetime: 09/07/2016 02:16 NBP Sys/Ashleigh/Mean (mmHg): 87 (QS system process) : 55 (QS system process) : 66 (QS system process) Pulse: 80 (QS system process) LaborFlag: Antepartum (QS system process) Datetime: 09/07/2016 02:11 NBP Sys/Ashleigh/Mean (mmHg): 91 (QS system process) : 55 (QS system process) : 68 (QS system process) Pulse: 81 (QS system process) LaborFlag: Antepartum (QS system process) Datetime: 09/07/2016 02:08 NBP Sys/Ashleigh/Mean (mmHg): 92 (QS system process) : 57 (QS system process) : 67 (QS system process) Pulse: 76 (QS system process) LaborFlag: Antepartum (QS system process) Datetime: 09/07/2016 02:01 NBP Sys/Ashleigh/Mean (mmHg): 93 (QS system process) : 60 (QS system process) : 71 (QS system process) Pulse: 79 (QS system process) LaborFlag: Antepartum (QS system process) Datetime: 09/07/2016 02:00 Monitor Mode: External (Adri Isbelltibisrale RN) Frequency (min): 5-6 (Adri Mariscal RN) Quality: Mild/Moderate (Adri Lattibeaudeir, RN) Duration (sec): 70-100 (Adri Lattibeaudeir, RN) Resting Tone (Palpate): Relaxed (Adri Lattibeaudeir, RN) Monitor Mode: External US (Adri Lattibeaudeir, RN) FHR Baseline Rate : 115 (Adri Lattibeaudeir, RN) Variability: Moderate 6-25 bpm (Adri Lattibeaudeir, RN) Accelerations: 15X15 (Adri Lattibeaudeir, RN) Datetime: 09/07/2016 01:57 NBP Sys/Ashleigh/Mean (mmHg): 88 (QS system process) : 54 (QS system process) : 65 (QS system process) Pulse: 81 (QS system process) LaborFlag: Antepartum (QS system process) Datetime: 09/07/2016 01:51 NBP Sys/Ashleigh/Mean (mmHg): 96 (QS system process) : 53 (QS system process) : 69 (QS system process) Pulse: 74 (QS system process) LaborFlag: Antepartum (QS system process) Datetime: 09/07/2016 01:46 NBP Sys/Ashleigh/Mean (mmHg): 91 (QS system process) : 54 (QS system process) : 67 (QS system process) Pulse: 81 (QS system process) LaborFlag: Antepartum (QS system process) Datetime: 09/07/2016 01:41 NBP Sys/Ashleigh/Mean (mmHg): 93 (QS system process) : 55 (QS system process) : 68 (QS system process) Pulse: 83 (QS system process) LaborFlag: Antepartum (QS system process) Datetime: 09/07/2016 01:37 NBP Sys/Ashleigh/Mean (mmHg): 89 (QS system process) : 54 (QS system process) : 66 (QS system process) Pulse: 77 (QS system process) LaborFlag: Antepartum (QS system process) Datetime: 09/07/2016 01:32 NBP Sys/Ashleigh/Mean (mmHg): 99 (QS system process) : 64 (QS system process) : 76 (QS system process) Pulse: 76 (QS system process) LaborFlag: Antepartum (QS system process) Datetime: 09/07/2016 01:30 Monitor Mode: External (Adri Mariscal RN) Frequency (min): 5.5-7 (Adri Mariscal RN) Quality: Mild/Moderate (Adri Mariscal RN) Duration (sec): 60-90 (Adri Mariscal RN) Resting Tone (Palpate): Relaxed (Adri Mariscal RN) Monitor Mode: External US (Adri Lattibeaudeir, RN) FHR Baseline Rate : 115 (Adri Lattibeaudeir, RN) Variability: Moderate 6-25 bpm (Adri Lattibeaudeir, RN) Accelerations: 15X15 (Adri Lattibeaudeir, RN) Datetime: 09/07/2016 01:27 NBP Sys/Ashleigh/Mean (mmHg): 93 (QS system process) : 58 (QS system process) : 70 (QS system process) Pulse: 80 (QS system process) LaborFlag: Antepartum (QS system process) Datetime: 09/07/2016 01:23 NBP Sys/Ashleigh/Mean (mmHg): 94 (QS system process) : 55 (QS system process) : 69 (QS system process) Pulse: 90 (QS system process) LaborFlag: Antepartum (QS system process) Datetime: 09/07/2016 01:18 NBP Sys/Ashleigh/Mean (mmHg): 95 (QS system process) : 62 (QS system process) : 74 (QS system process) Pulse: 88 (QS system process) LaborFlag: Antepartum (QS system process) Datetime: 09/07/2016 01:11 NBP Sys/Ashleigh/Mean (mmHg): 91 (QS system process) : 56 (QS system process) : 69 (QS system process) Pulse: 95 (QS system process) LaborFlag: Antepartum (QS system process) Datetime: 09/07/2016 01:08 NBP Sys/Ashleigh/Mean (mmHg): 97 (QS system process) : 60 (QS system process) : 73 (QS system process) Pulse: 80 (QS system process) LaborFlag: Antepartum (QS system process) Datetime: 09/07/2016 01:01 NBP Sys/Ashleigh/Mean (mmHg): 91 (QS system process) : 59 (QS system process) : 71 (QS system process) Pulse: 85 (QS system process) LaborFlag: Antepartum (QS system process) Datetime: 09/07/2016 01:00 Monitor Mode: External (Adri Lattibeaudeir, RN) Frequency (min): 4-6 (Adri Lattibeaudeir, RN) Quality: Mild/Moderate (Adri Lattibeaudeir, RN) Duration (sec): 60-80 (Adri Lattibeaudeir, RN) Resting Tone (Palpate): Relaxed (Adri Lattibeaudeir, RN) Monitor Mode: External US (Adri Lattibeaudeir, RN) FHR Baseline Rate : 115 (Adri Lattibeaudeir, RN) Variability: Moderate 6-25 bpm (Adri Lattibeaudeir, RN) Accelerations: 15X15 (Adri Lattibeaudeir, RN) Datetime: 09/07/2016 00:58 NBP Sys/Ashleigh/Mean (mmHg): 92 (QS system process) : 56 (QS system process) : 68 (QS system process) Pulse: 79 (QS system process) LaborFlag: Antepartum (QS system process) Datetime: 09/07/2016 00:51 NBP Sys/Ashleigh/Mean (mmHg): 95 (QS system process) : 55 (QS system process) : 71 (QS system process) Pulse: 78 (QS system process) LaborFlag: Antepartum (QS system process) Datetime: 09/07/2016 00:46 NBP Sys/Ashleigh/Mean (mmHg): 94 (QS system process) : 57 (QS system process) : 70 (QS system process) Pulse: 79 (QS system process) LaborFlag: Antepartum (QS system process) Datetime: 09/07/2016 00:41 NBP Sys/Ashleigh/Mean (mmHg): 93 (QS system process) : 59 (QS system process) : 71 (QS system process) Pulse: 87 (QS system process) LaborFlag: Antepartum (QS system process) Datetime: 09/07/2016 00:37 NBP Sys/Ashleigh/Mean (mmHg): 100 (QS system process) : 63 (QS system process) : 77 (QS system process) Pulse: 93 (QS system process) LaborFlag: Antepartum (QS system process) Datetime: 09/07/2016 00:31 NBP Sys/Ashleigh/Mean (mmHg): 94 (QS system process) : 57 (QS system process) : 71 (QS system process) Pulse: 91 (QS system process) LaborFlag: Antepartum (QS system process) Datetime: 09/07/2016 00:30 Monitor Mode: External (Adri Lattibeaudeir, RN) Frequency (min): 4-5 (Adri Lattibeaudeir, RN) Quality: Mild/Moderate (Adri Lattibeaudeir, RN) Duration (sec): 50-110 (Adri Lattibeaudeir, RN) Resting Tone (Palpate): Relaxed (Adri Lattibeaudeir, RN) Monitor Mode: External US (Adri Lattibeaudeir, RN) FHR Baseline Rate : 115 (Adri Lattibeaudeir, RN) Variability: Moderate 6-25 bpm (Adri Lattibeaudeir, RN) Accelerations: 15X15 (Adri Lattibeaudeir, RN) Datetime: 09/07/2016 00:27 NBP Sys/Ashleigh/Mean (mmHg): 94 (QS system process) : 59 (QS system process) : 71 (QS system process) Pulse: 88 (QS system process) LaborFlag: Antepartum (QS system process) Datetime: 09/07/2016 00:21 NBP Sys/Ashleigh/Mean (mmHg): 95 (QS system process) : 61 (QS system process) : 73 (QS system process) Pulse: 89 (QS system process) LaborFlag: Antepartum (QS system process) Datetime: 09/07/2016 00:16 NBP Sys/Ashleigh/Mean (mmHg): 92 (QS system process) : 63 (QS system process) : 72 (QS system process) Pulse: 100 (QS system process) LaborFlag: Antepartum (QS system process) Datetime: 09/07/2016 00:11 NBP Sys/Ashleigh/Mean (mmHg): 92 (QS system process) : 60 (QS system process) : 71 (QS system process) Pulse: 98 (QS system process) LaborFlag: Antepartum (QS system process) Datetime: 09/07/2016 00:06 NBP Sys/Ashleigh/Mean (mmHg): 93 (QS system process) : 60 (QS system process) : 70 (QS system process) Pulse: 93 (QS system process) LaborFlag: Antepartum (QS system process) Datetime: 09/07/2016 00:02 NBP Sys/Ashleigh/Mean (mmHg): 99 (QS system process) : 56 (QS system process) : 71 (QS system process) Pulse: 102 (QS system process) LaborFlag: Antepartum (QS system process) Datetime: 09/07/2016 00:00 Monitor Mode: External (Adri Lattibeaudeir, RN) Frequency (min): 4-5.5 (Adri Lattibeaudeir, RN) Quality: Mild/Moderate (Adri Lattibeaudeir, RN) Duration (sec): 60-90 (Adri Lattibeaudeir, RN) Resting Tone (Palpate): Relaxed (Adri Lattibeaudeir, RN) Monitor Mode: External US (Adri Lattibeaudeir, RN) FHR Baseline Rate : 120 (Adri Lattibeaudeir, RN) Variability: Moderate 6-25 bpm (Adri Lattibeaudeir, RN) Accelerations: 15X15 (Adri Lattibeaudeir, RN) Datetime: 09/06/2016 23:56 NBP Sys/Ashleigh/Mean (mmHg): 96 (QS system process) : 58 (QS system process) : 71 (QS system process) Pulse: 95 (QS system process) LaborFlag: Antepartum (QS system process) Datetime: 09/06/2016 23:55 NBP Sys/Ashleigh/Mean (mmHg): 97 (QS system process) : 61 (QS system process) : 74 (QS system process) Pulse: 96 (QS system process) LaborFlag: Antepartum (QS system process) Datetime: 09/06/2016 23:54 NBP Sys/Ashleigh/Mean (mmHg): 99 (QS system process) : 59 (QS system process) : 73 (QS system process) Pulse: 101 (QS system process) LaborFlag: Antepartum (QS system process) Datetime: 09/06/2016 23:53 NBP Sys/Ashleigh/Mean (mmHg): 98 (QS system process) : 59 (QS system process) : 73 (QS system process) Pulse: 98 (QS system process) LaborFlag: Antepartum (QS system process) Datetime: 09/06/2016 23:52 NBP Sys/Ashleigh/Mean (mmHg): 101 (QS system process) : 58 (QS system process) : 74 (QS system process) Pulse: 94 (QS system process) LaborFlag: Antepartum (QS system process) Datetime: 09/06/2016 23:51 NBP Sys/Ashleigh/Mean (mmHg): 99 (QS system process) : 58 (QS system process) : 73 (QS system process) Pulse: 96 (QS system process) LaborFlag: Antepartum (QS system process) Datetime: 09/06/2016 23:50 NBP Sys/Ashleigh/Mean (mmHg): 103 (QS system process) : 58 (QS system process) : 74 (QS system process) Pulse: 109 (QS system process) LaborFlag: Antepartum (QS system process) Datetime: 09/06/2016 23:49 NBP Sys/Ashleigh/Mean (mmHg): 95 (QS system process) : 54 (QS system process) : 69 (QS system process) Pulse: 106 (QS system process) LaborFlag: Antepartum (QS system process) Datetime: 09/06/2016 23:48 NBP Sys/Ashleigh/Mean (mmHg): 101 (QS system process) : 58 (QS system process) : 74 (QS system process) Pulse: 105 (QS system process) LaborFlag: Antepartum (QS system process) Datetime: 09/06/2016 23:47 NBP Sys/Ashleigh/Mean (mmHg): 98 (QS system process) : 57 (QS system process) : 73 (QS system process) Pulse: 103 (QS system process) LaborFlag: Antepartum (QS system process) Datetime: 09/06/2016 23:46 NBP Sys/Ashleigh/Mean (mmHg): 101 (QS system process) : 66 (QS system process) : 77 (QS system process) Pulse: 115 (QS system process) LaborFlag: Antepartum (QS system process) Datetime: 09/06/2016 23:45 NBP Sys/Ashleigh/Mean (mmHg): 101 (QS system process) : 66 (QS system process) : 78 (QS system process) Pulse: 105 (QS system process) LaborFlag: Antepartum (QS system process) Datetime: 09/06/2016 23:44 NBP Sys/Ashleigh/Mean (mmHg): 95 (QS system process) NBP Sys/Ashleigh/Mean (mmHg): 94 (QS system process) : 55 (QS system process) : 53 (QS system process) : 67 (QS system process) : 72 (QS system process) Pulse: 112 (QS system process) Pulse: 131 (QS system process) LaborFlag: Antepartum (QS system process) Datetime: 09/06/2016 23:43 NBP Sys/Ashleigh/Mean (mmHg): 104 (QS system process) : 55 (QS system process) : 73 (QS system process) Pulse: 113 (QS system process) LaborFlag: Antepartum (QS system process) Datetime: 09/06/2016 23:42 NBP Sys/Ashleigh/Mean (mmHg): 106 (QS system process) : 56 (QS system process) : 73 (QS system process) Pulse: 121 (QS system process) LaborFlag: Antepartum (QS system process) Datetime: 09/06/2016 23:40 NBP Sys/Ashleigh/Mean (mmHg): 103 (QS system process) : 65 (QS system process) : 80 (QS system process) Pulse: 115 (QS system process) LaborFlag: Antepartum (QS system process) Datetime: 09/06/2016 23:39 NBP Sys/Ashleigh/Mean (mmHg): 93 (QS system process) : 50 (QS system process) : 66 (QS system process) Pulse: 127 (QS system process) LaborFlag: Antepartum (QS system process) Datetime: 09/06/2016 23:38 NBP Sys/Ashleigh/Mean (mmHg): 137 (QS system process) : 61 (QS system process) : 76 (QS system process) Pulse: 139 (QS system process) LaborFlag: Antepartum (QS system process) Datetime: 09/06/2016 23:36 NBP Sys/Ashleigh/Mean (mmHg): 98 (QS system process) : 54 (QS system process) : 69 (QS system process) Pulse: 144 (QS system process) Medication Comments: Ephedrine 5 mg IVP (Adri Mariscal RN) LaborFlag: Antepartum (QS system process) Datetime: 09/06/2016 23:35 NBP Sys/Ashleigh/Mean (mmHg): 98 (QS system process) : 54 (QS system process) : 69 (QS system process) Pulse: 101 (QS system process) LaborFlag: Antepartum (QS system process) Datetime: 09/06/2016 23:34 NBP Sys/Ashleigh/Mean (mmHg): 94 (QS system process) : 54 (QS system process) : 67 (QS system process) Pulse: 102 (QS system process) Patient Care Comments: fernandez bulb out (Adri Mariscal RN) LaborFlag: Antepartum (QS system process) Datetime: 09/06/2016 23:33 NBP Sys/Ashleigh/Mean (mmHg): 92 (QS system process) : 58 (QS system process) : 69 (QS system process) Pulse: 106 (QS system process) LaborFlag: Antepartum (QS system process) Datetime: 09/06/2016 23:32 NBP Sys/Ashleigh/Mean (mmHg): 96 (QS system process) : 62 (QS system process) : 74 (QS system process) Pulse: 99 (QS system process) LaborFlag: Antepartum (QS system process) Datetime: 09/06/2016 23:31 NBP Sys/Ashleigh/Mean (mmHg): 94 (QS system process) : 61 (QS system process) : 73 (QS system process) Pulse: 104 (QS system process) LaborFlag: Antepartum (QS system process) Datetime: 09/06/2016 23:30 NBP Sys/Ashleigh/Mean (mmHg): 91 (QS system process) : 52 (QS system process) : 65 (QS system process) Pulse: 108 (QS system process) Accelerations: 15X15 (Adri Mariscal RN) Comments: unable to determine, pt sitting for epidural (Adri Mariscal RN) LaborFlag: Antepartum (QS system process) Datetime: 09/06/2016 23:29 NBP Sys/Ashleigh/Mean (mmHg): 96 (QS system process) : 52 (QS system process) : 68 (QS system process) Pulse: 118 (QS system process) LaborFlag: Antepartum (QS system process) Datetime: 09/06/2016 23:27 NBP Sys/Ashleigh/Mean (mmHg): 99 (QS system process) : 60 (QS system process) : 73 (QS system process) Pulse: 115 (QS system process) LaborFlag: Antepartum (QS system process) Datetime: 09/06/2016 23:26 NBP Sys/Ashleigh/Mean (mmHg): 104 (QS system process) : 63 (QS system process) : 79 (QS system process) Pulse: 102 (QS system process) LaborFlag: Antepartum (QS system process) Datetime: 09/06/2016 23:25 NBP Sys/Ashleigh/Mean (mmHg): 100 (QS system process) : 56 (QS system process) : 73 (QS system process) Pulse: 101 (QS system process) LaborFlag: Antepartum (QS system process) Datetime: 09/06/2016 23:24 NBP Sys/Ashleigh/Mean (mmHg): 97 (QS system process) : 56 (QS system process) : 71 (QS system process) Pulse: 100 (QS system process) LaborFlag: Antepartum (QS system process) Datetime: 09/06/2016 23:23 NBP Sys/Ashleigh/Mean (mmHg): 96 (QS system process) : 53 (QS system process) : 70 (QS system process) Pulse: 105 (QS system process) LaborFlag: Antepartum (QS system process) Datetime: 09/06/2016 23:22 NBP Sys/Ashleigh/Mean (mmHg): 99 (QS system process) : 58 (QS system process) : 74 (QS system process) Pulse: 100 (QS system process) I/O Interventions: Fernandez Cath Inserted (Adri Mariscal RN) LaborFlag: Antepartum (QS system process) Datetime: 09/06/2016 23:21 NBP Sys/Ashleigh/Mean (mmHg): 96 (QS system process) : 53 (QS system process) : 70 (QS system process) Pulse: 116 (QS system process) LaborFlag: Antepartum (QS system process) Datetime: 09/06/2016 23:20 NBP Sys/Ashleigh/Mean (mmHg): 99 (QS system process) : 52 (QS system process) : 74 (QS system process) Pulse: 107 (QS system process) LaborFlag: Antepartum (QS system process) Datetime: 09/06/2016 23:19 NBP Sys/Ashleigh/Mean (mmHg): 92 (QS system process) : 51 (QS system process) : 67 (QS system process) Pulse: 108 (QS system process) Medication Comments: Ephedrine 5mg IVP (Adri Mariscal RN) LaborFlag: Antepartum (QS system process) Datetime: 09/06/2016 23:18 NBP Sys/Ashleigh/Mean (mmHg): 95 (QS system process) : 52 (QS system process) : 70 (QS system process) Pulse: 113 (QS system process) LaborFlag: Antepartum (QS system process) Datetime: 09/06/2016 23:17 NBP Sys/Ashleigh/Mean (mmHg): 101 (QS system process) : 58 (QS system process) : 76 (QS system process) Pulse: 111 (QS system process) LaborFlag: Antepartum (QS system process) Datetime: 09/06/2016 23:16 NBP Sys/Ashleigh/Mean (mmHg): 102 (QS system process) : 58 (QS system process) : 76 (QS system process) Pulse: 123 (QS system process) LaborFlag: Antepartum (QS system process) Datetime: 09/06/2016 23:15 NBP Sys/Ashleigh/Mean (mmHg): 107 (QS system process) : 60 (QS system process) : 76 (QS system process) Pulse: 120 (QS system process) LaborFlag: Antepartum (QS system process) Datetime: 09/06/2016 23:14 NBP Sys/Ashleigh/Mean (mmHg): 116 (QS system process) : 65 (QS system process) : 84 (QS system process) Pulse: 110 (QS system process) Pulse: 113 (QS system process) Pulse: 118 (QS system process) SpO2 (%): 100 (QS system process) SpO2 (%): 92 (QS system process) LaborFlag: Antepartum (QS system process) Datetime: 09/06/2016 23:13 NBP Sys/Ashleigh/Mean (mmHg): 113 (QS system process) : 80 (QS system process) : 91 (QS system process) Pulse: 108 (QS system process) LaborFlag: Antepartum (QS system process) Datetime: 09/06/2016 23:12 NBP Sys/Ashleigh/Mean (mmHg): 109 (QS system process) : 74 (QS system process) : 88 (QS system process) Pulse: 99 (QS system process) LaborFlag: Antepartum (QS system process) Datetime: 09/06/2016 23:11 NBP Sys/Ashleigh/Mean (mmHg): 110 (QS system process) : 74 (QS system process) : 89 (QS system process) Pulse: 93 (QS system process) Epidural Procedure: Cath Placed (Adri Lattibeaudeir, RN) LaborFlag: Antepartum (QS system process) Datetime: 09/06/2016 23:10 Epidural Procedure: Loading Dose (Adri Lattibeaudeir, RN) Epidural Procedure: Test Dose (Adri Lattibeaudeir, RN) Datetime: 09/06/2016 23:09 Pulse: 85 (QS system process) SpO2 (%): 99 (QS system process) LaborFlag: Antepartum (QS system process) Datetime: 09/06/2016 23:04 Pulse: 101 (QS system process) SpO2 (%): 99 (QS system process) LaborFlag: Antepartum (QS system process) Datetime: 09/06/2016 23:02 Anesthesia Comments: [facility] Datetime: 09/06/2016 23:00 Monitor Mode: External (Adri Lattibeaudeir, RN) Frequency (min): 3-4 (Adri Lattibeaudeir, RN) Quality: Mild/Moderate (Adri Lattibeaudeir, RN) Duration (sec): 40-60 (Adri Lattibeaudeir, RN) Resting Tone (Palpate): Relaxed (Adri Lattibeaudeir, RN) Monitor Mode: External US (Adri Lattibeaudeir, RN) FHR Baseline Rate : 115 (Adri Lattibeaudeir, RN) Variability: Moderate 6-25 bpm (Adri Lattibeaudeir, RN) Accelerations: None (Adri Lattibeaudeir, RN) Datetime: 09/06/2016 22:59 Pulse: 96 (QS system process) SpO2 (%): 98 (QS system process) LaborFlag: Antepartum (QS system process) Datetime: 09/06/2016 22:54 Pulse: 99 (QS system process) SpO2 (%): 98 (QS system process) LaborFlag: Antepartum (QS system process) Datetime: 09/06/2016 22:49 Pulse: 95 (QS system process) SpO2 (%): 98 (QS system process) LaborFlag: Antepartum (QS system process) Datetime: 09/06/2016 22:44 Pulse: 98 (QS system process) SpO2 (%): 97 (QS system process) LaborFlag: Antepartum (QS system process) Datetime: 09/06/2016 22:39 Pulse: 96 (QS system process) SpO2 (%): 98 (QS system process) LaborFlag: Antepartum (QS system process) Datetime: 09/06/2016 22:34 Pulse: 94 (QS system process) SpO2 (%): 98 (QS system process) LaborFlag: Antepartum (QS system process) Datetime: 09/06/2016 22:30 Monitor Mode: External (Adri Lattibeareillyir, RN) Frequency (min): 2-4.5 (Adri Mariscal RN) Quality: Mild/Moderate (Adri Lattibeaudeir, RN) Duration (sec): 50-80 (Adri Lattibeaudeir, RN) Resting Tone (Palpate): Relaxed (Adri Lattibeaudeir, RN) Monitor Mode: External US (Adri Lattibeaudeir, RN) FHR Baseline Rate : 110 (Adri Lattibeaudeir, RN) Variability: Moderate 6-25 bpm (Adri Lattibeaudeir, RN) Accelerations: None (Adri Lattibeaudeir, RN) Datetime: 09/06/2016 22:29 Pulse: 109 (QS system process) SpO2 (%): 99 (QS system process) LaborFlag: Antepartum (QS system process) Datetime: 09/06/2016 22:24 Pulse: 113 (QS system process) SpO2 (%): 99 (QS system process) LaborFlag: Antepartum (QS system process) Datetime: 09/06/2016 22:22 Pulse: 93 (QS system process) SpO2 (%): 94 (QS system process) LaborFlag: Antepartum (QS system process) Datetime: 09/06/2016 22:19 Pulse: 92 (QS system process) SpO2 (%): 98 (QS system process) LaborFlag: Antepartum (QS system process) Datetime: 09/06/2016 22:14 Pulse: 99 (QS system process) SpO2 (%): 97 (QS system process) LaborFlag: Antepartum (QS system process) Datetime: 09/06/2016 22:09 Pulse: 95 (QS system process) SpO2 (%): 97 (QS system process) LaborFlag: Antepartum (QS system process) Datetime: 09/06/2016 22:07 Pulse: 96 (QS system process) SpO2 (%): 94 (QS system process) LaborFlag: Antepartum (QS system process) Datetime: 09/06/2016 22:04 Pulse: 96 (QS system process) SpO2 (%): 99 (QS system process) LaborFlag: Antepartum (QS system process) Datetime: 09/06/2016 22:00 Monitor Mode: External (Adri Isbelltibisrael, RN) Frequency (min): 4.5-6.5 (Adri Isbelltibjosé antonioir, RN) Quality: Mild/Moderate (Adri Lattibeaudeir, RN) Duration (sec): 60-80 (Adri Lattibeaudeir, RN) Resting Tone (Palpate): Relaxed (Adri Lattibeadev, RN) Monitor Mode: External US (Adri Mariscal, RN) FHR Baseline Rate : 105 (Adri Mariscal, RN) Variability: Moderate 6-25 bpm (Adir Lattibeaudeir, RN) Accelerations: None (Adri Lattibeaudeir, RN)
[2016-09-07] MEDS ORDERED: ONDANSETRON HCL INJ/PF 4 MG/2 ML SDV ONE (08:10)
[2016-09-07] MEDS ORDERED: BUPIVACAINE HCL 0.25 % INJ/PF (2.5 MG/1 ML) 30 ML VIAL ONE (09:20)
[2016-09-07] MEDS ORDERED: FENTANYL/BUPIVACAINE/NS/PF 200 MCG/100 ML RTUINJ EPI ONE (09:20)
[2016-09-07] MEDS ORDERED: PENICILLIN G-K 5 MILLION UNIT VIAL IV SCH (10:00)
--- NOTE | 2016-09-07 10:00 | L&D Flow Sheet ---
LD Flowsheet Datetime Report Generated by CPN: 09/07/2016 10:00 Datetime: 09/07/2016 09:58 NBP Sys/Ashleigh/Mean (mmHg): 129 (QS system process) : 67 (QS system process) : 88 (QS system process) Pulse: 85 (QS system process) LaborFlag: Antepartum (QS system process) Datetime: 09/07/2016 09:45 Monitor Mode: External; Palpation (Jhonny Taylor RN) Frequency (min): 2-3 (Jhonny Lemoseet, RN) Quality: Moderate (Jhonny Lemoseet, RN) Duration (sec): 60-80 (Jhonny Lemoseet, RN) Duration Criteria: Less than Two 120 Second Contractions (Jhonny Lemoseet, RN) Pattern: Normal: <= 5 Contractions in 10 Minutes (Jhonny Lemoseet, RN) Resting Tone (Palpate): Relaxed (Jhonny Taylor, RN) Monitor Mode: External US (Jhonny Taylor RN) FHR Baseline Rate : 120 (Jhonny Lemoseet, RN) Variability: Moderate 6-25 bpm (Jhonny Lemoseet, RN) Accelerations: 15X15 (Jhonny Lemoseet, RN) Decelerations: None (Jhonny Gallegot, RN) Patient Position/Activity: Left Lateral; Peanut Ball (Jhonny Taylor, RN) Communication: RN at Bedside; RN Reviewed Strip (Jhonny Taylor, RN) Datetime: 09/07/2016 09:43 Monitor Interventions for UA: [place] Adjusted (Jhonny Lemoseet, RN) Datetime: 09/07/2016 09:42 NBP Sys/Ashleigh/Mean (mmHg): 107 (QS system process) : 66 (QS system process) : 78 (QS system process) Pulse: 76 (QS system process) Monitor Interventions for FHR: Ultrasound Adjusted (Jhonny Taylor RN) LaborFlag: Antepartum (QS system process) Datetime: 09/07/2016 09:30 Respirations: 16 (Jhonny Taylor RN) Monitor Mode: External; Palpation (Jhonny Taylor RN) Frequency (min): 1.5-3.5 (Jhonny Taylor RN) Quality: Moderate (Jhonny Taylor RN) Duration (sec): 60-70 (Jhonny Taylor RN) Duration Criteria: Less than Two 120 Second Contractions (Jhonny Taylor RN) Pattern: Normal: <= 5 Contractions in 10 Minutes (Jhonny Taylor RN) Resting Tone (Palpate): Relaxed (Jhonny Taylor RN) Monitor Mode: External US (Jhonny Taylor RN) FHR Baseline Rate : 120 (Jhonny Taylor, RN) Variability: Moderate 6-25 bpm (Jhonny Taylor RN) Accelerations: 15X15 (Jhonny Taylor RN) Decelerations: None (Jhonny Taylor, RN) Pain Presence: None/Denies (Jhonny Taylor RN) Level of Consciousness: Fully Conscious (Jhonny Taylor RN) Headache: Denies (Jhonny Taylor RN) Nausea/Vomiting: Denies (Jhonny Taylor RN) RUQ Epigastric Pain: Denies (Jhonny Taylor RN) Pitocin (milliunit): Pitocin Increased to (milliunits) @ 14 (Jhonny Taylor RN) Anesthesia Comments: Dr Rizvi at bedside to replace Fentanyl bag and hang new bag. Tubing changed, and pump set up by provider. (Jhonny Taylor RN) Communication: RN at Bedside; RN Reviewed Strip (Jhonny Taylor RN) LaborFlag: Antepartum (QS system process) Datetime: 09/07/2016 09:27 NBP Sys/Ashleigh/Mean (mmHg): 89 (QS system process) : 52 (QS system process) : 64 (QS system process) Pulse: 90 (QS system process) LaborFlag: Antepartum (QS system process) Datetime: 09/07/2016 09:15 Monitor Mode: External; Palpation (Jhonny Taylor RN) Frequency (min): 2-4 (Jhonny Taylor RN) Quality: Moderate (Jhonny Claudia, RN) Duration (sec): 60-80 (Jhonny Kellerfleet, RN) Duration Criteria: Less than Two 120 Second Contractions (Jhonny Claudia, RN) Pattern: Normal: <= 5 Contractions in 10 Minutes (Jhonny Claudia, RN) Resting Tone (Palpate): Relaxed (Jhonny Claudia, RN) Monitor Mode: External US (Jhonny Gallegot, RN) FHR Baseline Rate : 120 (Jhonny Claudia, RN) Variability: Moderate 6-25 bpm (Jhonny Claudia, RN) Accelerations: 15X15 (Jhonny Claudia, RN) Decelerations: None (Jhonny Claudia, RN) Communication: RN at Bedside; RN Reviewed Strip (Jhonny Claudia, RN) Datetime: 09/07/2016 09:12 NBP Sys/Ashleigh/Mean (mmHg): 83 (QS system process) : 54 (QS system process) : 64 (QS system process) Pulse: 77 (QS system process) LaborFlag: Antepartum (QS system process) Datetime: 09/07/2016 09:00 Respirations: 16 (Jhonny Taylor RN) Monitor Mode: External; Palpation (Jhonny Taylor RN) Monitor Interventions for UA: [place] Adjusted (Jhonny Taylor RN) Frequency (min): 2-5 (Jhonny Taylor RN) Quality: Moderate (Jhonny Taylor RN) Duration (sec): 70-80 (Jhonny Taylor RN) Duration Criteria: Less than Two 120 Second Contractions (Jhonny Taylor RN) Pattern: Normal: <= 5 Contractions in 10 Minutes (Jhonny Taylor RN) Resting Tone (Palpate): Relaxed (Jhonny Taylor RN) Monitor Mode: External US (Jhonny Taylor RN) FHR Baseline Rate : 115 (Jhonny Taylor RN) Variability: Moderate 6-25 bpm (Jhonny Taylor RN) Accelerations: 15X15 (Jhonny Taylor RN) Decelerations: Early (Jhonny Taylor RN) Pain Presence: None/Denies (Jhonny Taylor RN) Pain Relief Measures: Epidural Given (Jhonny Taylor RN) Level of Consciousness: Fully Conscious (Jhonny Taylor RN) Headache: Denies (Jhonny Taylor RN) Nausea/Vomiting: Denies (Jhonny Taylor RN) RUQ Epigastric Pain: Denies (Jhonny Taylor RN) Pitocin (milliunit): Pitocin Increased to (milliunits) @ 12 (Jhonny Taylor RN) Patient Position/Activity: Right Lateral; Peanut Ball (Jhonny Taylor RN) Hygiene: Hayde Care; Underpad Changed (Jhonny Taylor RN) Communication: RN at Bedside; RN Reviewed Strip (Jhonny Taylor RN) LaborFlag: Antepartum (QS system process) Datetime: 09/07/2016 08:58 NBP Sys/Ashleigh/Mean (mmHg): 85 (QS system process) : 52 (QS system process) : 64 (QS system process) Pulse: 88 (QS system process) LaborFlag: Antepartum (QS system process) Datetime: 09/07/2016 08:45 Monitor Mode: External; Palpation (Jhonny Taylor RN) Frequency (min): 1.5-5 (Jhonny Taylor RN) Quality: Moderate (Jhonny Taylor RN) Duration (sec): 70-90 (Jhonny Taylor, RN) Resting Tone (Palpate): Relaxed (Jhonny Taylor, RN) Monitor Mode: External US (Jhonny Taylor, RN) FHR Baseline Rate : 115 (Jhonny Taylor, RN) Variability: Moderate 6-25 bpm (Jhonny Gallegot, RN) Accelerations: 15X15 (Jhonny Taylor, RN) Decelerations: Early (Jhonny Taylor RN) Communication: RN at Bedside; RN Reviewed Strip (Jhonny Taylor RN) Datetime: 09/07/2016 08:42 NBP Sys/Ashleigh/Mean (mmHg): 98 (QS system process) : 57 (QS system process) : 72 (QS system process) Pulse: 73 (QS system process) LaborFlag: Antepartum (QS system process) Datetime: 09/07/2016 08:30 Respirations: 18 (Jhonny Claudia, RN) Monitor Mode: External; Palpation (Jhonny Taylor, RN) Frequency (min): 1-4 (Jhonny Claudia, RN) Quality: Moderate (Jhonny Claudia, RN) Duration (sec): 60-80 (Jhonny Claudia, RN) Resting Tone (Palpate): Relaxed (Jhonny Claudia, RN) Monitor Mode: External US (Jhonny Lemoseet, RN) FHR Baseline Rate : 115 (Jhonny Claudia, RN) Variability: Moderate 6-25 bpm (Jhonny Claudia, RN) Accelerations: 15X15 (Jhonny Claudia, RN) Decelerations: Early (Jhonny Claudia, RN) Pain Presence: None/Denies (Jhonny Lemoseet, RN) Level of Consciousness: Fully Conscious (Jhonny Lemoseet, RN) Headache: Denies (Jhonny Claudia, RN) Nausea/Vomiting: Denies (Jhonny Taylor RN) RUQ Epigastric Pain: Denies (Jhonny Taylor RN) Pitocin (milliunit): Pitocin Increased to (milliunits) @ 10 (Jhonny Taylor RN) Communication: RN at Bedside; RN Reviewed Strip (Jhonny Taylor RN) LaborFlag: Antepartum (QS system process) Datetime: 09/07/2016 08:28 NBP Sys/Ashleigh/Mean (mmHg): 94 (QS system process) : 52 (QS system process) : 70 (QS system process) Pulse: 78 (QS system process) LaborFlag: Antepartum (QS system process) Datetime: 09/07/2016 08:23 Strip Reviewed by: Kiersten Mera RN (Jhonny Taylor RN) Provider Notified (Name): Kiersten Mera RN (Jhonny Taylor RN) Notification Reason: Status Update; Status; Labor Status; Membrane Status; Uterine Activity (Jhonny Taylor RN) Communication Comments: Provider reviewed strip, states to increase pitocin now. Aware of pt BP's and nausea. (Jhonny Taylor RN) Datetime: 09/07/2016 08:15 NBP Sys/Ashleigh/Mean (mmHg): 95 (QS system process) : 51 (QS system process) : 66 (QS system process) Pulse: 76 (QS system process) Monitor Mode: External; Palpation (Jhonny Taylor RN) Frequency (min): 2-3 (Jhonny Taylor RN) Quality: Moderate (Jhonny Taylor RN) Duration (sec): 60-80 (Jhonny Taylor RN) Resting Tone (Palpate): Relaxed (Jhonny Taylor RN) Monitor Mode: External US (Jhonny Taylor RN) Monitor Interventions for FHR: Ultrasound Adjusted (Jhonny Taylor RN) FHR Baseline Rate : 120 (Jhonny Taylor RN) Variability: Moderate 6-25 bpm (Jhonny Taylor RN) Accelerations: 15X15 (Jhonny Taylor RN) Decelerations: Early; Variable (Jhonny Taylor RN) Comments: Broken tracing/ RN adjusting (Jhonny Taylor RN) Antiemetics/Antacids: Zofran IV (mg) @ 4 (Jhonny Taylor RN) Medication Comments: with saline flush over 2 min (Jhonny Taylor RN) Communication: RN at Bedside; RN Reviewed Strip (Jhonny Taylor RN) LaborFlag: Antepartum (QS system process) Datetime: 09/07/2016 08:14 NBP Sys/Ashleigh/Mean (mmHg): 80 (QS system process) : 44 (QS system process) : 55 (QS system process) Pulse: 78 (QS system process) LaborFlag: Antepartum (QS system process) Datetime: 09/07/2016 08:08 Monitor Interventions for FHR: Ultrasound Adjusted (Jhonny Claudia, RN) Datetime: 09/07/2016 08:00 Monitor Mode: External; Palpation (Jhonny Taylor, RN) Frequency (min): 1-4 (Jhonny Taylor RN) Quality: Mild/Moderate (Jhonny Taylor RN) Duration (sec): 60-80 (Jhonny Taylor RN) Resting Tone (Palpate): Relaxed (Jhonny Taylor RN) Monitor Mode: External US (Jhonny Taylor RN) FHR Baseline Rate : 115 (Jhonny Taylor RN) Variability: Moderate 6-25 bpm (Jhonny Taylor RN) Accelerations: 15X15 (Jhonny Taylor RN) Decelerations: Early; Variable (Jhonny Taylor RN) Comments: Broken tracing/ RN adjusting (Jhonny Taylor RN) Level of Consciousness: Fully Conscious (Jhonny Taylor RN) DTR's/Clonus: DTRs 1+; No Clonus (Jhonny Taylor RN) Headache: Denies (Jhonny Taylor RN) Breath Sounds, Left: Clear and Equal (Jhonny Taylor RN) Breath Sounds, Right: Clear and Equal (Jhonny Taylor RN) Nausea/Vomiting: Present (Jhonny Taylor RN) RUQ Epigastric Pain: Denies (Jhonny Taylor RN) Pitocin (milliunit): Pitocin Remains (milliunits) @ (Annotations: 8) (Jhonny Taylor RN) Communication: RN at Bedside; RN Reviewed Strip (Jhonny Taylor RN)
--- NOTE | 2016-09-07 12:00 | L&D Flow Sheet ---
LD Flowsheet Datetime Report Generated by CPN: 09/07/2016 12:00 Datetime: 09/07/2016 11:58 NBP Sys/Ashleigh/Mean (mmHg): 97 (QS system process) : 60 (QS system process) : 73 (QS system process) Pulse: 90 (QS system process) LaborFlag: Antepartum (QS system process) Datetime: 09/07/2016 11:45 Monitor Mode: External; Palpation (Jhonny Taylor RN) Frequency (min): 3-4 (Jhonny Taylor RN) Quality: Moderate (Jhonny Taylor RN) Duration (sec): 60-70 (Jhonny Taylor RN) Resting Tone (Palpate): Relaxed (Jhonny Taylor RN) Monitor Mode: External US (Jhonny Taylor RN) FHR Baseline Rate : 115 (Jhonny Taylor RN) Variability: Moderate 6-25 bpm (Jhonny Taylor RN) Accelerations: None (Jhonny Taylor RN) Decelerations: Early (Jhonny Taylor RN) Pitocin (milliunit): Pitocin Remains (milliunits) @ 18 (Jhonny Taylor RN) Communication: RN at Bedside; RN Reviewed Strip (Jhonny Taylor RN) Datetime: 09/07/2016 11:42 NBP Sys/Ashleigh/Mean (mmHg): 102 (QS system process) : 60 (QS system process) : 75 (QS system process) Pulse: 95 (QS system process) LaborFlag: Antepartum (QS system process) Datetime: 09/07/2016 11:39 Monitor Interventions for UA: [place] Adjusted (Jhonny Claudia, RN) Datetime: 09/07/2016 11:35 Monitor Interventions for UA: [place] Adjusted (Jhonny Claudia, RN) Patient Position/Activity: Right Lateral; Peanut Ball (Jhonny Claudia, RN) Datetime: 09/07/2016 11:30 Monitor Mode: External; Palpation (Jhonny Claudia, RN) Frequency (min): 2-6 (Jhonny Claudia, RN) Quality: Moderate (Jhonny Claudia, RN) Duration (sec): 60-70 (Jhonny Claudia, RN) Duration Criteria: Less than Two 120 Second Contractions (Jhonny Claudia, RN) Pattern: Normal: <= 5 Contractions in 10 Minutes (Jhonny Claudia, RN) Resting Tone (Palpate): Relaxed (Jhonny Lemoseet, RN) Monitor Mode: External US (Jhonny Taylor, RN) FHR Baseline Rate : 120 (Jhonny Taylor RN) Variability: Moderate 6-25 bpm (Jhonny Taylor RN) Accelerations: 15X15 (Jhonny Taylor RN) Decelerations: Early; Variable (Jhonny Taylor RN) Pain Presence: None/Denies (Jhonny Taylor RN) Pitocin (milliunit): Pitocin Remains (milliunits) @ 18 (Jhonny Taylor RN) Communication: RN at Bedside; RN Reviewed Strip (Jhonny Taylor RN) LaborFlag: Antepartum (QS system process) Datetime: 09/07/2016 11:27 NBP Sys/Ashleigh/Mean (mmHg): 97 (QS system process) : 63 (QS system process) : 75 (QS system process) Pulse: 87 (QS system process) LaborFlag: Antepartum (QS system process) Datetime: 09/07/2016 11:15 Monitor Mode: External; Palpation (Jhonny Taylor RN) Frequency (min): 2.5-3 (Jhonny Taylor RN) Quality: Moderate (Jhonny Talyor RN) Duration (sec): 50-70 (Jhonny Taylor RN) Duration Criteria: Less than Two 120 Second Contractions (Jhonny Taylor RN) Pattern: Normal: <= 5 Contractions in 10 Minutes (Jhonny Taylor RN) Resting Tone (Palpate): Relaxed (Jhonny Taylor RN) Monitor Mode: External US (Jhonny Taylor RN) FHR Baseline Rate : 120 (Jhonny Taylor RN) Variability: Moderate 6-25 bpm (Jhonny Taylor, RN) Accelerations: 15X15 (Jhonny Taylor, RN) Decelerations: None (Jhonny Taylor RN) Communication: RN at Bedside; RN Reviewed Strip (Jhonny Taylor RN) Datetime: 09/07/2016 11:12 NBP Sys/Ashleigh/Mean (mmHg): 97 (QS system process) : 62 (QS system process) : 75 (QS system process) Pulse: 71 (QS system process) LaborFlag: Antepartum (QS system process) Datetime: 09/07/2016 11:10 Pitocin (milliunit): Pitocin Increased to (milliunits) @ 18 (Jhonny Taylor RN) Antibiotics: Penicillin IV (Units) @ [id number] (Jhonny Taylor RN) Datetime: 09/07/2016 11:00 Monitor Mode: External; Palpation (Jhonny Taylor RN) Frequency (min): 2-3 (Jhonny Taylor RN) Quality: Moderate (Jhonny Taylor RN) Duration (sec): 60-80 (Jhonny Taylor RN) Duration Criteria: Less than Two 120 Second Contractions (Jhonny Taylor RN) Pattern: Normal: <= 5 Contractions in 10 Minutes (Jhonny Taylor RN) Resting Tone (Palpate): Relaxed (Jhonny Taylor RN) Monitor Mode: External US (Jhonny Taylor RN) FHR Baseline Rate : 120 (Jhonny Taylor RN) Variability: Moderate 6-25 bpm (Jhonny Taylor RN) Accelerations: 15X15 (Jhonny Taylor RN) Decelerations: None (Jhonny Taylor RN) Pitocin (milliunit): Pitocin Remains (milliunits) @ 16 (Jhonny Taylor RN) Communication: RN at Bedside; RN Reviewed Strip (Jhonny Taylor RN) Datetime: 09/07/2016 10:57 NBP Sys/Ashleigh/Mean (mmHg): 98 (QS system process) : 60 (QS system process) : 75 (QS system process) Pulse: 77 (QS system process) LaborFlag: Antepartum (QS system process) Datetime: 09/07/2016 10:52 Monitor Interventions for FHR: Ultrasound Adjusted (Jhonny Claudia, RN) Datetime: 09/07/2016 10:50 Monitor Interventions for UA: [place] Adjusted (Jhonny Claudia, RN) Datetime: 09/07/2016 10:47 Monitor Interventions for UA: [place] Adjusted (Jhonny Galleogt, RN) Patient Position/Activity: Left Lateral; Peanut Ball (Jhonny Lemoseet, RN) Datetime: 09/07/2016 10:45 Monitor Mode: External; Palpation (Jhonny Taylor, RN) Frequency (min): 2-3 (Jhonny Claudia, RN) Quality: Moderate (Jhonny Claudia, RN) Duration (sec): 60-100 (Jhonny Claudia, RN) Duration Criteria: Less than Two 120 Second Contractions (Jhonny Claudia, RN) Pattern: Normal: <= 5 Contractions in 10 Minutes (Jhonny Claudia, RN) Resting Tone (Palpate): Relaxed (Jhonny Lemoseet, RN) Monitor Mode: External US (Jhonny Taylor, RN) Monitor Interventions for FHR: Ultrasound Adjusted (Jhonny Lemoseet, RN) FHR Baseline Rate : 120 (Jhonny Claudia, RN) Variability: Moderate 6-25 bpm (Jhonny [place], RN) Accelerations: 15X15 (Jhonny [place], RN) Decelerations: None (Jhonny Taylor RN) Comments: Broken tracing (Jhonny Taylor RN) Pitocin (milliunit): Pitocin Remains (milliunits) @ 16 (Jhonny Taylor RN) Communication: RN at Bedside; RN Reviewed Strip (Jhonny Taylor RN) Datetime: 09/07/2016 10:43 NBP Sys/Ashleigh/Mean (mmHg): 91 (QS system process) : 54 (QS system process) : 66 (QS system process) Pulse: 93 (QS system process) LaborFlag: Antepartum (QS system process) Datetime: 09/07/2016 10:38 Monitor Interventions for FHR: Ultrasound Adjusted (Jhonny Taylor RN) Communication: RN at Bedside (Jhonny Taylor RN) Datetime: 09/07/2016 10:30 Monitor Mode: External; Palpation (Jhonny Lemoseet, RN) Frequency (min): 1.5-3 (Jhonny Claudia, RN) Quality: Moderate (Jhonny Claudia, RN) Duration (sec): 60-80 (Jhonny Claudia, RN) Pattern: Normal: <= 5 Contractions in 10 Minutes (Jhonny Claudia, RN) Resting Tone (Palpate): Relaxed (Jhonny Claudia, RN) Monitor Mode: External US (Jhonny Claudia, RN) FHR Baseline Rate : 120 (Jhonny Claudia, RN) Variability: Moderate 6-25 bpm (Jhonny Claudia, RN) Accelerations: 15X15 (Jhonny Claudia, RN) Decelerations: None (Jhonny Claudia, RN) Communication: RN at Bedside; RN Reviewed Strip (Jhonny Taylor, RN) Datetime: 09/07/2016 10:28 NBP Sys/Ashleigh/Mean (mmHg): 91 (QS system process) : 54 (QS system process) : 67 (QS system process) Pulse: 87 (QS system process) LaborFlag: Antepartum (QS system process) Datetime: 09/07/2016 10:16 Monitor Interventions for UA: [place] Adjusted (Jhonny Taylor, RN) Datetime: 09/07/2016 10:15 Monitor Mode: External; Palpation (Jhonny Taylor RN) Frequency (min): 3-4 (Jhonny Taylor RN) Quality: Moderate (Jhonny Taylor RN) Duration (sec): 50-60 (Jhonny Taylor, KEVEN) Duration Criteria: Less than Two 120 Second Contractions (Jhonny Taylor RN) Pattern: Normal: <= 5 Contractions in 10 Minutes (Jhonny Taylor, RN) Resting Tone (Palpate): Relaxed (Jhonny Taylor, RN) Monitor Mode: External US (Jhonny Taylor RN) FHR Baseline Rate : 120 (Jhonny Taylor RN) Variability: Moderate 6-25 bpm (Jhonny Taylor, RN) Accelerations: 10X10 (Jhonny Taylor, RN) Decelerations: None (Jhonny Taylor RN) Patient Position/Activity: Right Lateral; Peanut Ball (Jhonny Claudia, RN) Hygiene: Hayde Care; Underpad Changed (Jhonny Gallegot, RN) Communication: RN at Bedside; RN Reviewed Strip (Jhonny Gallegot, RN) Datetime: 09/07/2016 10:12 NBP Sys/Ashleigh/Mean (mmHg): 110 (QS system process) : 67 (QS system process) : 84 (QS system process) Pulse: 82 (QS system process) LaborFlag: Antepartum (QS system process) Datetime: 09/07/2016 10:06 Contraction Comments: picking up ctx upside down (Jhonny Lemoseet, RN) Datetime: 09/07/2016 10:05 Monitor Interventions for UA: [place] Adjusted (Jhonny Taylor RN) Datetime: 09/07/2016 10:00 Monitor Mode: External; Palpation (Jhonny Taylor RN) Frequency (min): 2-4 (Jhonny Taylor RN) Quality: Moderate (Jhonny Taylor RN) Duration (sec): 50-60 (Jhonny Taylor RN) Duration Criteria: Less than Two 120 Second Contractions (Jhonny Taylor RN) Pattern: Normal: <= 5 Contractions in 10 Minutes (Jhonny Taylor RN) Resting Tone (Palpate): Relaxed (Jhonny Taylor RN) Monitor Mode: External US (Jhonny Taylor RN) FHR Baseline Rate : 120 (Jhonny Taylor RN) Variability: Moderate 6-25 bpm (Jhonny Taylor RN) Accelerations: 15X15 (Jhonny Taylor RN) Decelerations: None (Jhonny Taylor RN) Pitocin (milliunit): Pitocin Increased to (milliunits) @ 16 (Jhonny Taylor RN) Communication: RN at Bedside; RN Reviewed Strip (Jhonny Taylor RN)
[2016-09-07] MEDS ORDERED: MISOPROSTOL 0.2 MG TABLET ONE (13:02)
[2016-09-07] MEDS ORDERED: LIDOCAINE 1% INJ-PF (10 MG/ML) 30 ML SDV ONE (13:03)
--- NOTE | 2016-09-07 14:00 | L&D Flow Sheet ---
LD Flowsheet Datetime Report Generated by CPN: 09/07/2016 14:00 Datetime: 09/07/2016 13:59 Pulse: 150 (QS system process) SpO2 (%): 93 (QS system process) LaborFlag: Antepartum (QS system process) Datetime: 09/07/2016 13:57 Pulse: 125 (QS system process) SpO2 (%): 96 (QS system process) LaborFlag: Antepartum (QS system process) Datetime: 09/07/2016 13:54 Pulse: 138 (QS system process) SpO2 (%): 93 (QS system process) LaborFlag: Antepartum (QS system process) Datetime: 09/07/2016 13:52 Pulse: 147 (QS system process) SpO2 (%): 97 (QS system process) LaborFlag: Antepartum (QS system process) Datetime: 09/07/2016 13:47 Pulse: 122 (QS system process) SpO2 (%): 96 (QS system process) LaborFlag: Antepartum (QS system process) Datetime: 09/07/2016 13:44 NBP Sys/Ashleigh/Mean (mmHg): 114 (QS system process) NBP Sys/Ashleigh/Mean (mmHg): 103 (QS system process) : 59 (QS system process) : 81 (QS system process) : 72 (QS system process) Pulse: 110 (QS system process) Pulse: 148 (QS system process) Pushing Progress: with Pushing (Jhonny Taylor RN) LaborFlag: Antepartum (QS system process) Datetime: 09/07/2016 13:42 Pulse: 103 (QS system process) SpO2 (%): 100 (QS system process) LaborFlag: Antepartum (QS system process) Datetime: 09/07/2016 13:41 Pulse: 132 (QS system process) SpO2 (%): 91 (QS system process) LaborFlag: Antepartum (QS system process) Datetime: 09/07/2016 13:37 Pulse: 126 (QS system process) SpO2 (%): 100 (QS system process) LaborFlag: Antepartum (QS system process) Datetime: 09/07/2016 13:36 Temperature (F): 99.1 (Jhonny Taylor, RN) Temperature (C): 37.3 (QS system process) LaborFlag: Antepartum (QS system process) Datetime: 09/07/2016 13:32 Pulse: 116 (QS system process) SpO2 (%): 99 (QS system process) LaborFlag: Antepartum (QS system process) Datetime: 09/07/2016 13:27 Pulse: 90 (QS system process) SpO2 (%): 95 (QS system process) LaborFlag: Antepartum (QS system process) Datetime: 09/07/2016 13:23 Stage 2 Comments: tug of war (Jhonny Claudia, RN) Datetime: 09/07/2016 13:22 Pulse: 120 (QS system process) SpO2 (%): 99 (QS system process) LaborFlag: Antepartum (QS system process) Datetime: 09/07/2016 13:18 I/O Interventions: [place] Discontinued (Jhonny Claudia, RN) Pushing Position: Pushing with Contractions (Jhonny Claudia, RN) Datetime: 09/07/2016 13:12 NBP Sys/Ashleigh/Mean (mmHg): 106 (QS system process) : 62 (QS system process) : 77 (QS system process) Pulse: 98 (QS system process) LaborFlag: Antepartum (QS system process) Datetime: 09/07/2016 13:11 Pushing: Coached on Pushing; Urge to Push (Jhonny Claudia, RN) Datetime: 09/07/2016 13:08 Monitor Interventions for UA: [place] Adjusted (Jhonny Claudia, RN) Datetime: 09/07/2016 13:03 Preparation for Delivery: Setup for Delivery (Jhonny Claudia, RN) Communication Comments: C Mera CNM at bedside (Jhonny Claudia, RN) Datetime: 09/07/2016 12:59 Pain Scale: 3 (Jhonny Taylor RN) Pain Type: Pressure (Jhonny Taylor RN) Pain Location: Perineum (Jhonny Taylor RN) Dilatation (cm): 10.0 (Jhonny Taylor RN) Effacement (%): 100 (Jhonny Taylor RN) Station: 0 (Jhonny Taylor RN) Exam by: Carmel Taylor RN (Jhonny Taylor RN) Vaginal Bleeding: Normal Show (Jhonny Taylor RN) Pushing: Urge to Push (Jhonny Taylor RN) Communication Comments: C Mera CNM notified (Jhonny Taylor RN) LaborFlag: Antepartum (QS system process) Datetime: 09/07/2016 12:58 NBP Sys/Ashleigh/Mean (mmHg): 107 (QS system process) : 69 (QS system process) : 83 (QS system process) Pulse: 103 (QS system process) LaborFlag: Antepartum (QS system process) Datetime: 09/07/2016 12:42 NBP Sys/Ashleigh/Mean (mmHg): 101 (QS system process) : 62 (QS system process) : 76 (QS system process) Pulse: 89 (QS system process) LaborFlag: Antepartum (QS system process) Datetime: 09/07/2016 12:27 NBP Sys/Ashleigh/Mean (mmHg): 100 (QS system process) : 58 (QS system process) : 73 (QS system process) Pulse: 81 (QS system process) LaborFlag: Antepartum (QS system process) Datetime: 09/07/2016 12:15 Monitor Mode: External; Palpation (Jhonny Claudia, RN) Frequency (min): 1-3 (Jhonny Taylor RN) Quality: Mild/Moderate (Jhonny Taylor RN) Duration (sec): 50-70 (Jhonny Taylor RN) Duration Criteria: Less than Two 120 Second Contractions (Jhonny Taylor RN) Pattern: Normal: <= 5 Contractions in 10 Minutes (Jhonny Taylor RN) Resting Tone (Palpate): Relaxed (Jhonny Taylor RN) Monitor Mode: External US (Jhonny Taylor RN) FHR Baseline Rate : 115 (Jhonny Taylor RN) Variability: Moderate 6-25 bpm (Jhonny Taylor RN) Accelerations: 15X15 (Jhonny Taylor RN) Decelerations: None (Jhonny Taylor RN) Pitocin (milliunit): Pitocin Increased to (milliunits) @ 20 (Jhonny Taylor RN) Communication: RN at Bedside; RN Reviewed Strip (Jhonny Taylor RN) Communication Comments: Kiersten Mera CNAndie notified of Pitocin on 20 units/1000ml NSS (Jhonny Taylor RN) Datetime: 09/07/2016 12:12 NBP Sys/Ashleigh/Mean (mmHg): 96 (QS system process) : 61 (QS system process) : 74 (QS system process) Pulse: 82 (QS system process) LaborFlag: Antepartum (QS system process) Datetime: 09/07/2016 12:00 Monitor Mode: External; Palpation (Jhonny Taylor RN) Frequency (min): 1-4 (Jhonny Taylor RN) Quality: Mild/Moderate (Jhonny Taylor RN) Duration (sec): 50-70 (Jhonny Taylor RN) Pattern: Normal: <= 5 Contractions in 10 Minutes (Jhonny Taylor RN) Resting Tone (Palpate): Relaxed (Jhonny Taylor RN) Monitor Mode: External US (Jhonny Taylor RN) FHR Baseline Rate : 115 (Jhonny Taylor RN) Variability: Moderate 6-25 bpm (Jhonny Taylor RN) Accelerations: 15X15 (Jhonny Taylor RN) Decelerations: None (Jhonny Taylor RN) Pain Scale: 1 (Jhonny Taylor RN) Pain Type: Pressure (Jhonny Taylor RN) Pain Location: Perineum (Jhonny Taylor RN) Pain Coping: Talking Through Contractions; Declines Medication or Epidural (Jhonny Taylor RN) Pitocin (milliunit): Pitocin Remains (milliunits) @ 18 (Jhonny Taylor RN) Comfort Measures: Breathing/Relaxation (Jhonny Taylor RN) Communication: RN at Bedside; RN Reviewed Strip (Jhonny Taylor RN) LaborFlag: Antepartum (QS system process)
[2016-09-07] MEDS ORDERED: DIBUCAINE 1% OINTMENT 28 GM TP PRN (14:34)
[2016-09-07] MEDS ORDERED: ZOLPIDEM TARTRATE 5 MG TABLET PO PRN (14:34)
[2016-09-07] MEDS ORDERED: DIPH/PERTUSS(ACELL)/TETANUS VAC/PF 0.5 ML SYR (>=10YO) IM PRN (14:34)
[2016-09-07] MEDS ORDERED: ACETAMINOPHEN WITH CODEINE #3 TABLET PO PRN ×2 (14:34)
[2016-09-07] MEDS ORDERED: BENZOCAINE/MENTHOL AEROSOL SPRAY 56 ML TOP PRN (14:34)
[2016-09-07] MEDS ORDERED: MEASLES,MUMPS&RUBELLA VACC/PF 0.5 ML VIAL SUBCUT PRN (14:34)
--- NOTE | 2016-09-07 15:16 | Delivery Summary ---
Del Sum A-C Datetime Report Generated by CPN: 09/07/2016 15:16 ADMISSION DATA Chief Complaint: Uterine Contractions; Scheduled Induction of Labor Indication for Induction: Not Applicable; Post Dates Admission Impression: Postterm, Intrauterine ; No Active Labor; Intact Membranes Admit Provider Comments: 20yo at 40+5ega who presents for Elective IOL. Her is set to deploy tomorrow. However, he spoke with his command and they will let him leave on Wednesday but no later. REviewed options with pt for IOL tomorrow evening or this evening. She is aware that IOL is not a dietrich process. Bishops is 4 which translates into 10-15% risk of section. She is aware of the risks and wishes to proceed with IOL. GBS pos - PCN for GBS prophy. Plan for misoprostol 50mg po and Cooks catheter then AROM and pitocin. She is aware that this is an elective IOL. Anticipate . Reassuring FWB. EFW 8#10oz. Pelvis adequate for RONNIE. DELIVERY PERSONNEL Delivery Doctor:: Kiersten Mera CNM Labor and Delivery Nurse:: Jhonny Taylor RN Nursery Nurse:: Julia Maldonado RN Group Exercise Manager/WELDER HELPER: ST Jeri MATERNAL INFORMATION Delivery Anesthesia: Epidural Medications After Delivery: Pitocin Bolus-Please Comment; Pitocin Drip 20 Units/1000ml NSS Estimated Blood Loss (ml): 250 Maternal Complications: None Provider Comments: Pt. progressed to c/c/1 with urge to push. After much coaching, she went on to deliver a viable female delivered through nuchal x2 (unable to reduce) Spontaneous cry and vigorous respiratory effort at . Baby placed on maternal abdomen and cord allow to stop pulsating then clamped x2 and cut by FOB.Cord blood collected (3vc noted). Placenta delivered spontaneously intact, fundus firm with massage @ u-4. Small amount of clots noted and and moderate bleeding that stopped with fundal and firm fundus after that. Vaginal and perineal inspection revealed laceration as stated above and repair in the usual fashion. Mother and baby stable skin to skin and bonding at this time. LABOR SUMMARY EDC: 09/01/2016 00:00 No. Babies in Womb: 1 Attempted: No Labor Anesthesia: Epidural LABOR INFORMATION Reason for Induction: Post Dates Onset of Labor: 09/07/2016 02:55 Complete Dilatation: 09/07/2016 12:59 Cervical Ripening Agents: Noland Balloon; Cytotec @ Oxytocin: Induction Group B Beta Strep: Positive Antibiotics # of Doses: 3 Antibiotics Time of Last Dose: 1100 Name of Antibiotic Given: PCN Steroids Given: None Reason Steroids Not Administered: Not Applicable MEMBRANES Membranes Rupture Method: Artificial Rupture of Membranes: 09/07/2016 02:55 Length of Rupture (hr): 11.12 Amniotic Fluid Color: Clear Amniotic Fluid Amount: Moderate Amniotic Fluid Odor: Normal STAGES OF LABOR Stage 1 hr: 10 Stage 1 min: 4 Stage 2 hr: 1 Stage 2 min: 3 Stage 3 hr: 0 Stage 3 min: 5 Total Time in Labor hr: 11 Total Time in Labor min: 12 VAGINAL DELIVERY Episiotomy: None Laceration Extension: First Degree Laceration Type: Vaginal Laceration Repair: Yes Laceration Repair Note: superficial laceration that was not hemostatic so 2-0 vicryl was used to repair. Approximated and Hemostasis achieved. Sponge Count Correct: N/A Sharps Count Correct: N/A BABY A INFORMATION Infant Delivery Date/Time: 09/07/2016 14:02 Method of Delivery: Vaginal Born in Route : No : N/A Forceps: N/A Vacuum Extraction: N/A Shoulder Dystocia : No PRESENTATION/POSITION BABY A Presentation: Cephalic Cephalic Presentation: Vertex Vertex Position: Left Occipital Anterior Breech Presentation: N/A PLACENTA INFORMATION BABY A Placenta Delivery Time : 09/07/2016 14:07 Placenta Method of Delivery: Spontaneous Placenta Status: Delivered SCORES BABY A Heart Rate 1 min: >100 bpm Resp Effort 1 min: Good Cry Reflex Irritability 1 min: Cough or Sneeze or Pulls Away Muscle Tone 1 min: Active Motion Color 1 min: Body Adrian, Extremities Blue Resuscitation Effort 1 min: Tactile Stimulation SCORE 1 MIN: 9 Heart Rate 5 min: >100 bpm Resp Effort 5 min: Good Cry Reflex Irritability 5 min: Cough or Sneeze or Pulls Away Muscle Tone 5 min: Active Motion Color 5 min: Body Adrian, Extremities Blue Resuscitation Effort 5 min: Tactile Stimulation SCORE 5 MIN: 9 INFORMATION BABY A Gestational Age at Delivery: 40.6 Gestational Status: Full Term- 39- 40.6 Weeks Outcome : Liveborn Infant Condition : Stable Infant Sex: Female IDENTIFICATION BABY A Infant Verification Date/Time: 09/07/2016 14:20 ID Band Number: [id number] Mother's Name Verified: Yes Infant RN Verifying : S Claudia RN B Chandler RN WEIGHT/LENGTH BABY A Birthweight (gm): 3300 Weight (lb): 7 Weight (oz): 4 Length (in): 19.50 Infant Length (cm): 49.53 CORD INFORMATION BABY A No. Cord Vessels: 3 Nuchal Cord : Around Neck x2, Tight Cord Blood Taken: Yes-For Eval (Mom's Blood Type - or O+) Suction: None ASSESSMENT BABY A Complications: None Physical Findings at Delivery: Caput Succedaneum Respirations: Appears Normal Skin to Skin: Yes Skin to Skin Time (min): 30 Director Recreation/ALS Called : No Care By: Ant Maldonado Transferred To: Remains with Mother BABY B INFORMATION : N/A
--- NOTE | 2016-09-07 16:00 | L&D Flow Sheet ---
LD Flowsheet Datetime Report Generated by CPN: 09/07/2016 16:00 Datetime: 09/07/2016 15:41 NBP Sys/Ashleigh/Mean (mmHg): 114 (QS system process) : 65 (QS system process) : 84 (QS system process) Pulse: 110 (QS system process) Datetime: 09/07/2016 15:30 Stage of : Recovery (Jhonny Taylor RN) Pain Scale: 1 (Jhonny Taylor RN) Pain Presence: Constant (Jhonny Claudia, RN) Pain Type: Ache (Jhonny Claudia, RN) Pain Location: Perineum (Jhonny Claudia, RN) Pain Relief Measures: Comfort Measures (Jhonny Claudia, RN) Datetime: 09/07/2016 15:15 Stage of : Recovery (Jhonny Claudia, RN) Pain Scale: 1 (Jhonny Claudia, RN) Pain Presence: Constant (Jhonny Claudia, RN) Pain Type: Ache (Jhonny Claudia, RN) Pain Location: Perineum (Jhonny Claudia, RN) Pain Relief Measures: Comfort Measures (Jhonny Claudia, RN) Datetime: 09/07/2016 15:12 NBP Sys/Ashleigh/Mean (mmHg): 104 (QS system process) : 69 (QS system process) : 79 (QS system process) Pulse: 118 (QS system process) Datetime: 09/07/2016 15:00 Stage of : Recovery (Jhonny Claudia, RN) Respirations: 16 (Jhonny Claudia, RN) Pain Scale: 1 (Jhonny Claudia, RN) Pain Presence: Constant (Jhonny Claudia, RN) Pain Type: Ache (Jhonny Claudia, RN) Pain Location: Perineum (Jhonny Claudia, RN) Pain Relief Measures: Comfort Measures (Jhonny Claudia, RN) Datetime: 09/07/2016 14:45 Stage of : Recovery (Jhonny Claudia, RN) Pain Scale: 1 (Jhonny Claudia, RN) Pain Presence: Constant (Jhonny Claudia, RN) Pain Type: Ache (Jhonny Claudia, RN) Pain Location: Perineum (Jhonny Claudia, RN) Pain Relief Measures: Comfort Measures (Jhonny Claudia, RN) Pain Assessment Comments: Declines pain medication (Jhonny Claudia, RN) Datetime: 09/07/2016 14:30 Respirations: 16 (Jhonny Lemoseet, RN) Pain Scale: 1 (Jhonny [place]fleet, RN) Pain Presence: Constant (Jhonny [place], RN) Pain Type: Ache (Jhonnymar KellerClaudia, RN) Pain Location: Perineum (Jhonny Claudia, ) Pain Relief Measures: Comfort Measures (Jhonnymar KellerClaudia, ) Datetime: 09/07/2016 14:22 Temperature (F): 98.7 (Jhonnymar KellerClaudia, ) Temperature (C): 37.1 (QS system process) Datetime: 09/07/2016 14:17 Pulse: 102 (QS system process) SpO2 (%): 94 (QS system process) Datetime: 09/07/2016 14:16 NBP Sys/Ashleigh/Mean (mmHg): 108 (QS system process) : 54 (QS system process) : 77 (QS system process) Pulse: 106 (QS system process) Datetime: 09/07/2016 14:15 Stage of : Recovery (Jhonny Claudia, RN) Respirations: 16 (Jhonny Claudia, RN) Pain Scale: 0 (Jhonny Claudia, RN) Pain Presence: None/Denies (Jhonny Claudia, RN) Datetime: 09/07/2016 14:12 Pulse: 111 (QS system process) SpO2 (%): 96 (QS system process) LaborFlag: Antepartum (QS system process) Datetime: 09/07/2016 14:07 Pulse: 113 (QS system process) SpO2 (%): 96 (QS system process) LaborFlag: Antepartum (QS system process) Datetime: 09/07/2016 14:02 Pulse: 150 (QS system process) SpO2 (%): 96 (QS system process) Pitocin (milliunit): Pitocin Discontinued (Jhonny Taylor RN) LaborFlag: Antepartum (QS system process) Datetime: 09/07/2016 14:01 Monitor Mode: External US (Jhonny Taylor RN) Monitor Interventions for FHR: Ultrasound Adjusted (Jhonny Taylor RN) FHR Baseline Rate : 115 (Jhonny Taylor RN) Variability: Moderate 6-25 bpm (Jhonny Taylor RN) Accelerations: 15X15 (Jhonny Taylor RN) Decelerations: None (Jhonny Taylor RN) Comments: Broken tracing/ RN adjusting (Jhonny Taylor RN) Pushing Position: Pushing with Contractions (Jhonny Taylor RN) Communication: RN at Bedside; RN Reviewed Strip (Jhonny Taylor RN)
[2016-09-07] MEDS ORDERED: IBUPROFEN 800 MG TABLET ONE (17:39)
--- NOTE | 2016-09-07 19:19 | Admission Physical ---
Datetime Report Generated by CPN: 09/07/2016 19:19 CURRENT ADMISSION Chief Complaint: Uterine Contractions; Scheduled Induction of Labor Indication for Induction: Not Applicable; Post Dates Admit Plan: Admit to Unit; Initiate Labor Induction Protocol ALLERGIES Medication Allergies: No Medication Allergies: cinnamon (09/06/2016) Latex: No Latex Allergies Food Allergies: Cinnamon Environmental Allergies: None OBSTETRICAL HISTORY EDC: 09/01/2016 00:00 : 1 Para: 0 Term: 0 : 0 SAB: 0 IAB: 0 Ectopic: 0 Livin Cesareans: 0 VBACs: 0 Multiple Births: 0 Gestational Diabetes: No Rh Sensitization: No Incompetent Cervix: No JACKIE: No Infertility: No ART Treatment: No Uterine Anomaly: No IUGR: No Hx Previous C/S: No Macrosomia: No Hx Loss/Stillborn: No PIH: No Hx : No Placenta Previa/Abruption: No Depression/PP Depression: No PTL/PROM: No Post Hemorrhage: No Current Procedures: Ultrasound Obstetrical History Comments: G1 - Current - obesity SEE RECORDS Alcohol: No Marijuana : No Cocaine: No Other Illicit Drugs: No Cigarettes: Never Smoker. 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 Surgery: No Heart Disease: No Hosp/Surgery: No Autoimmune Disorder: No Anesthetic Complications: No Kidney Disease: No Abnormal Pap Smear: No Neuro/Epilepsy: No Psychiatric Disorders: No Other Medical Diseases: No Hepatitis/Liver Disease: No Significant Family History: No Varicosities/Phlebitis: No Trauma/Violence : No Thyroid Dysfunction: No INFECTIOUS HISTORY Gonorrhea: No Genital Herpes: No Chlamydia: No Tuberculosis: No Syphilis: No Hepatitis: No HIV/AIDS Exposure: No Rash or Viral Illness: No HPV: No PHYSICAL EXAM General: Normal HEENT: Normal Neurologic: Normal Thyroid: Normal Heart: Normal Lungs: Normal Breast: Deferred Back: Normal Abdomen: Normal Genitourinary Exam: Normal Extremities: Normal DTRs: Normal Pelvic Type: Adequate Vital Signs: Reviewed; Within Normal Limits VAGINAL EXAM Dilatation: 1 Effacement: 50 Station: -1 MEMBRANES Membranes: Intact FETUS A EGA: 40.5 Monitoring: External US FHR- Baseline: 120 Variability: Moderate 6-25bpm Accelerations: 15X15 Decelerations: None FHR Category: Category I Presentation: Vertex Admit Comment: 20yo at 40+5ega who presents for Elective IOL. Her is set to deploy tomorrow. However, he spoke with his command and they will let him leave on Wednesday but no later. REviewed options with pt for IOL tomorrow evening or this evening. She is aware that IOL is not a dietrich process. Bishops is 4 which translates into 10-15% risk of section. She is aware of the risks and wishes to proceed with IOL. GBS pos - PCN for GBS prophy. Plan for misoprostol 50mg po and Cooks catheter then AROM and pitocin. She is aware that this is an elective IOL. Anticipate . Reassuring FWB. EFW 8#10oz. Pelvis adequate for RONNIE. PLANS FOR LABOR AND DELIVERY Labor and Delivery: None Pain Management: Medications; Epidural Feeding Preference: Breast Benefit of Breast Feed Discussed: Yes Circumcision: N/A INFORMED CONSENT Informed Consent Obtained: Vaginal Delivery; Section Delivery; Induction of Labor; Risks, Benefits and Alternatives Discussed Signature: with User ID: [email or web address]
[2016-09-07] MEDS: DOCUSATE SODIUM 100 MG CAPSULE PO SCH (19:44)
[2016-09-07] MEDS: FERROUS SULFATE 325 MG TABLET PO SCH (19:45)
[2016-09-07] MEDS ORDERED: IBUPROFEN 800 MG TABLET PO SCH (22:00)
[2016-09-08] MEDS: IBUPROFEN 800 MG TABLET PO SCH ×3 (01:49→18:58)
--- NOTE | 2016-09-08 06:00 | L&D Current Admission ---
Current Admit Datetime Report Generated by CPN: 09/08/2016 06:00 ADMISSION INFORMATION Current Admit Date/Time: 09/06/2016 18:00 (09/06/2016 15:57:Darline Rodriguez RN) Reason for Admission: Induction of Labor (09/06/2016 15:57:Darline Rodriguez RN) Chief Complaint: Contractions (09/06/2016 15:57:Darline Rodriguez RN) Medications During : Vitamin (09/06/2016 15:57:Darline Rodriguez RN) EGA per Dates: 40.5 (09/06/2016 15:57:QS system process) EGA per US: 40.3 (09/06/2016 15:57:QS system process) Method of Arrival: Wheelchair (09/06/2016 15:57:Darline Rodriguez RN) Admitted From: Home (09/06/2016 15:57:Darline Rodriguez RN) Reason for Induction: Other (09/06/2016 15:57:Darline Rodriguez RN) Reason for Induction- Other: 40.5wk IUP (09/06/2016 15:57:Darline Rodriguez RN) Records Available: Yes (09/06/2016 15:57:Darline Rodriguez RN) General Admission Information: Reviewed; Updated; Confirmed (09/06/2016 15:57:Darline Rodriguez RN) General Admission Reviewed By: Lance Rodriguez RN (09/06/2016 15:57:Darline Rodriguez RN) BELONGINGS/ADVANCED DIRECTIVES Valuables/Personal Effects: None (09/06/2016 15:57:Darline Rodriguez RN) Other Belongings: See belongings consent (09/06/2016 15:57:Darline Rodriguez RN) Disposition of Belongings: Kept with Patient (09/06/2016 15:57:Darline Rodriguez RN) Advance Direct for Healthcare: No, and Wants No Information (09/06/2016 15:57:Darline Rodriguez RN) Durable Power of Dietary Assistant: No (09/06/2016 15:57:Darline Rodriguez RN) Living Will: No (09/06/2016 15:57:Darline Rodriguez RN) Organ Donor: No (09/06/2016 15:57:Darline Rodriguez RN) Pt Rights Information Given: Yes (09/06/2016 15:57:Darline Rodriguez RN) Pt Understands Pt Rights: Yes (09/06/2016 15:57:Darline Rodriguez RN) LEARNING ASSESSMENT Knowledge Level: Understands L_D Process; Understands Care Activities; Had Pre-Hospital Education; Understands Diagnosis (09/06/2016 15:57:Darline Rodriguez RN) Barriers to Learning: None (09/06/2016 15:57:Darline Rodriguez RN) Learning Readiness: Motivated (09/06/2016 15:57:Darline Rodriguez RN) Learns Best By: 1 to 1 Instruction; Reading; Videos; Demonstration (09/06/2016 15:57:Darline Rodriguez RN) Learning Needs: Labor and Delivery Process; Pain Management; Symptoms to Report; Treatment Plan; Medication; Diagnosis; Nutrition; Equipment; Infant Care; Community Resources (09/06/2016 15:57:Darline Rodriguez RN) DOMESTIC VIOLANCE SCREENING Dom Viol Threatened/Hurt: No (09/06/2016 15:57:Darline Rodriguez RN) Hx of Abuse/Neglect past 2yrs: No (09/06/2016 15:57:Darline Rodriguez RN) Feel Unsafe Going Home: No (09/06/2016 15:57:Darline Rodriguez RN) Addt'l Observ Indicating Abuse: No (09/06/2016 15:57:Darline Rodriguez RN) Reason Unable to Complete Screen: N/A, Screen Completed (09/06/2016 15:57:Darline Rodriguez RN) Considered Personal Harm/Suicide: No (09/06/2016 15:57:Darline Rodriguez RN) NUTRITIONAL/FUNCTIONAL SCREENING Problem with Appetite >5 Days: No (09/06/2016 15:57:Darline Rodriguez RN) Chew/Swallow Difficulties: No (09/06/2016 15:57:Darline Rodriguez RN) Inappropriate Wt Gain/Loss: No (09/06/2016 15:57:Darline Rodriguez RN) Presence Skin Breakdown/Ulcer: No (09/06/2016 15:57:Darline Rodriguez RN) Special Diet: No (09/06/2016 15:57:Darline Rodriguez RN) Pt Requests Metal Die Finisher Visit: No (09/06/2016 15:57:Darline Rodriguez RN) Hx of Any of the Following?: N/A (09/06/2016 15:57:Darline Rodriguez RN) New Diagnosis of: N/A (09/06/2016 15:57:Darline Rodriguez RN) Requires Assist w/Ambulation: No (09/06/2016 15:57:Darline Rodriguez RN) Uses Assist Device to Ambulate: No (09/06/2016 15:57:Darline Rodriguez RN) Pt Requires Help w/ADL's: No (09/06/2016 15:57:Darline Rodriguez RN)
--- NOTE | 2016-09-08 06:00 | L&D General Admission ---
General Admit Datetime Report Generated by CPN: 09/08/2016 06:00 INFORMATION Patient Age: 20 (08/28/2016 15:34:QS system process) EDC: 09/01/2016 00:00 (09/06/2016 15:29:Darline Rodriguez RN) EDC per Ultrasound: 09/03/2016 00:00 (09/06/2016 15:29:Darline Rodriguez RN) LMP: 11/26/2015 00:00 (09/06/2016 15:29:Darline Rodriguez RN) : 1 (09/06/2016 15:29:Darline Rodriguez RN) Para: 0 (09/06/2016 15:29:Darline Rodriguez RN) Term: 0 (09/06/2016 15:29:Darline Rodriguez RN) : 0 (09/06/2016 15:29:Darline Rodriguez RN) Spontaneous Abortions: 0 (09/06/2016 15:29:Darline Rodriguez RN) Induced Abortions: 0 (09/06/2016 15:29:Darline Rodriguez RN) Livin (09/06/2016 15:29:Darline Rodriguez RN) Cesareans: 0 (09/06/2016 15:29:Darline Rodriguez RN) VBACs: 0 (09/06/2016 15:29:Darline Rodriguez RN) Ectopic: 0 (09/06/2016 15:29:Darline Rodriguez RN) Multiple Births: 0 (09/06/2016 15:29:Darline Rodriguez RN) Baby, Number in Womb: 1 (09/06/2016 15:29:Darline Rodriguez RN) CARE Primary House Officer: [facility] (09/06/2016 15:29:Darline Rodriguez RN) Month of 1st Visit: 01/2016 (09/06/2016 15:29:Darline Rodriguez RN) Adequate Care: Yes (09/06/2016 15:29:Darline Rodriguez RN) Prepregnancy Weight (lb): 230 (09/06/2016 15:29:Darline Rodriguez RN) Prepregnancy Weight (kg): 104.5 (09/06/2016 15:29:QS system process) Height (in): 66 (09/07/2016 19:18:QS system process) ALLERGIES Medication Allergy: No (09/06/2016 15:29:Darline Rodriguez RN) Medication Allergies: cinnamon (09/06/2016) (09/06/2016 15:19:QS system process) Latex Allergy: No Latex Allergies (09/06/2016 15:29:Darline Rodriguez RN) Food Allergies: Cinnamon (09/06/2016 15:29:Darline Rodriguez RN) Environmental Allergies: None (09/06/2016 15:29:Darline Rodriguez RN) COMMUNICATION Primary Language: Gambian (09/06/2016 15:29:Darline Rodriguez RN) Medical Tx Preferred Language: Gambian (09/06/2016 15:29:Darline Rodriguez RN) Communication Barrier(s): None (09/06/2016 15:29:Darline Rodriguez RN) DEMOGRAPHICS Address: [address] [place] [address] [place] [address] (08/28/2016 15:34:QS system process) Zipcode: [address] (08/28/2016 15:34:QS system process) Home (08/28/2016 15:34:QS system process) SSN: [id number] (08/28/2016 15:34:QS system process) Next of Kin Name: JOSE DAVID NAVARRETE JR (08/28/2016 15:34:QS system process) Next of Kin (08/28/2016 15:34:QS system process) Next of Kin Relationship: SPO (08/28/2016 15:34:QS system process) Date of : 1995 (08/28/2016 15:34:QS system process) Marital Status: (08/28/2016 15:34:QS system process) Sex: Female (08/28/2016 15:34:QS system process) Race: (08/28/2016 15:34:QS system process) Ethnicity: Non- or (08/28/2016 15:34:QS system process) Rastafari: Moravian (08/28/2016 15:34:QS system process) DRUG AND ALCOHOL USE Alcohol: No (09/06/2016 15:29:Darline Rodriguez RN) Cigarettes: Never Smoker. [id number] (09/06/2016 15:29:Darline Rodriguez RN) Marijuana: No (09/06/2016 15:29:Darline Rodriguez RN) Cocaine: No (09/06/2016 15:29:Darline Rodriguez RN) Other Illicit Drugs: No (09/06/2016 15:29:Darline Rodriguez RN) VACCINE HISTORY Influenza Vaccine: No (09/06/2016 15:29:Darline Rodriguez RN) Pneumococcal Vaccine: No (09/06/2016 15:29:Darline Rodriguez RN) Tetanus Vaccine: No (09/06/2016 15:29:Darline Rodriguez RN) Tdap Vaccine: No (09/06/2016 15:29:Darline Rodriguez RN) Hepatitis B Vaccine: Yes (09/06/2016 15:29:Darline Rodriguez RN) Professional Sports Scout: [facility] (09/06/2016 15:29:Darline Rodriguez RN) Feeding Preference: Breast (09/06/2016 15:29:Darline Rodriguez RN) Benefit of Breast Feed Discussed: Yes (09/06/2016 15:29:Darline Rodriguez RN) Circumcision: N/A (09/06/2016 15:29:Darline Rodriguez RN) Classes Attended: No (09/06/2016 15:29:Darline Rodriguez RN) Tubal Ligation: No (09/06/2016 15:29:Darline Rodriguez RN) Tubal Authorization Signed: N/A (09/06/2016 15:29:Darline Rodriguez RN) Consent: N/A (09/06/2016 15:29:Darline Rodriguez RN) Consent Signed: N/A (09/06/2016 15:29:Darline Rodriguez RN) Pain Management Plans: Medications; Epidural (09/06/2016 15:29:Darline Rodriguez RN) Plans for Labor and Delivery: None (09/06/2016 15:29:Darline Rodriguez RN) Support Person: Jose David Navarrete (09/06/2016 15:29:Darline Rodriguez RN) Support Person Relationship: (09/06/2016 15:29:Darline Rodriguez RN) Cultural/Spritual Practice: No (09/06/2016 15:29:Darline Rodriguez RN) Spir/Cult Dietary Needs: No (09/06/2016 15:29:Darline Rodriguez RN) LIVING SITUATION/DISCHARGE PLAN Living Arrangements: House (09/06/2016 15:29:Darline Rodriguez RN) Adequate Access to:: Electric; Heat; Refrigeration; Plumbing/Running water; Phone; Transportation (09/06/2016 15:29:Darline Rodriguez RN) WIC Program: [place] (09/06/2016 15:29:Darline Rodriguez RN) Discharge [employer] Assistant Manager Person: Mother (09/06/2016 15:29:Darline Rodriguez RN) Person to Help after Discharge: Mother (09/06/2016 15:29:Darline Rodriguez RN) Currently Using Commun Resources: No (09/06/2016 15:29:Darline Rodriguez RN) Outside Agency/Re Dye Hand: No (09/06/2016 15:29:Darline Rodriguez RN) Car Seat for Discharge: N/A (09/06/2016 15:29:Darline Rodriguez RN) Adoption Requested: No (09/06/2016 15:29:Darline Rodriguez RN) Pt Contact w/ Post : N/A (09/06/2016 15:29:Darline Rodriguez RN) LABS Blood Type: O Positive (09/06/2016 15:29:Darline Rodriguez RN) Antibody Screen: Negative (09/06/2016 15:29:Darline Rodriguez RN) Rho(G) this : Not Applicable (09/06/2016 15:29:Darline Rodriguez RN) Hemoglobin: 11.0 L (09/06/2016 18:35:QS system process) Hematocrit: 33.2 L (09/06/2016 18:35:QS system process) MCV: 90 (09/06/2016 18:35:QS system process) Group Beta Strep: Positive (09/06/2016 15:29:Darline Rodriguez RN) Gonorrhea: Negative (09/06/2016 15:29:Darline Rodriguez RN) Chlamydia: Negative (09/06/2016 15:29:Darline Rodriguez RN) RPR/VDRL: Nonreactive (09/06/2016 15:29:Darline Rodriguez RN) HIV Exposure Test: Negative (09/06/2016 15:29:Darline Rodriguez RN) HIV Results: negative (09/06/2016 15:29:Dorothy German RN) Hepatitis B: Negative (09/06/2016 15:29:Darline Rodriguez RN) Rubella: Immune (09/06/2016 15:29:Darline Rodriguez RN) OB/PREVIOUS HISTORY LMP: 11/26/2015 00:00 (09/06/2016 15:29:Darline Rodriguez RN) Previous Procedures: None (09/06/2016 15:29:Darline Rodriguez RN) Current Procedures: Ultrasound (09/06/2016 15:29:Darline Rodriguez RN) History of Previous : No (09/06/2016 15:29:Darline Rodriguez RN) History of Gestational Diabetes: No (09/06/2016 15:29:Darline Rodriguez RN) History of PIH: No (09/06/2016 15:29:Darline Rodriguez RN) History of Incompetent Cervix: No (09/06/2016 15:29:Darline Rodriguez RN) History of Placenta Previa/Abrup: No (09/06/2016 15:29:Darline Rodriguez RN) History of Macrosomia: No (09/06/2016 15:29:Darline Rodriguez RN) History of IUGR: No (09/06/2016 15:29:Darline Rodriguez RN) History of Hemorrhage: No (09/06/2016 15:29:Darline Rodriguez RN) History of Loss/Stillborn: No (09/06/2016 15:29:Darline Rodriguez RN) History of : No (09/06/2016 15:29:Darline Rodriguez RN) History of D (Rh) Sensitization: No (09/06/2016 15:29:Darline Rodriguez RN) History Recurrent Loss/Stillborn: No (09/06/2016 15:29:Darline Rodriguez RN) History Depression/PP Depression: No (09/06/2016 15:29:Darline Rodriguez RN) History of Uterine Anomaly/JACKIE: No (09/06/2016 15:29:Darline Rodriguez RN) History of Infertility: No (09/06/2016 15:29:Darline Rodriguez RN) History of ART Treatment: No (09/06/2016 15:29:Darline Rodriguez RN) History of JACKIE: No (09/06/2016 15:29:Darline Rodriguez RN) Comments Obstetrical History: G1 - Current - obesity (09/06/2016 15:29:Darline Rodriguez RN) MEDICAL HISTORY Med Hx Diabetes: No (09/06/2016 15:29:Darline Rodriguez RN) Med Hx Hypertension: No (09/06/2016 15:29:Darline Rodriguez RN) Med Hx Heart Disease: No (09/06/2016 15:29:Darline Rodriguez RN) Med Hx Autoimmune Disorder: No (09/06/2016 15:29:Darline Rodriguez RN) Med Hx Kidney Disease/UTI: No (09/06/2016 15:29:Darline Rodriguez RN) Med Hx Neurologic/Epilepsy: No (09/06/2016 15:29:Darline Rodriguez RN) Med Hx Psychiatric Disorders: No (09/06/2016 15:29:Darline Rodriguez RN) Med Hx Hepatitis/Liver Disease: No (09/06/2016 15:29:Darline Rodriguez RN) Med Hx Varicosities/Phlebitis: No (09/06/2016 15:29:Darline Rodriguez RN) Med Hx Thyroid Dysfunction: No (09/06/2016 15:29:Darline Rodriguez RN) Med Hx Trauma/Violence: No (09/06/2016 15:29:Darline Rodriguez RN) Med Hx Blood Transfusion: No (09/06/2016 15:29:Darline Rodriguez RN) Med Hx Pulmonary (Asthma,TB): No (09/06/2016 15:29:Darline Rodriguez RN) Med Hx Breast: No (09/06/2016 15:29:Darline Rodriguez RN) Med Hx HEALTH INFORMATION MANAGEMENT DIRECTOR Surgery: No (09/06/2016 15:29:Darline Rodriguez RN) Med Hx Hospitalization/Surgery: No (09/06/2016 15:29:Darline Rodriguez RN) Med Hx Anesthetic Complications: No (09/06/2016 15:29:Darline Rodriguez RN) Med Hx Abnormal Pap Smear: No (09/06/2016 15:29:Darline Rodriguez RN) Other Medical Diseases: No (09/06/2016 15:29:Darline Rodriguez RN) Med Hx Significant Family Hx: No (09/06/2016 15:29:Darline Rodriguez RN) INFECTIOUS HISTORY Inf Hx Gonorrhea: No (09/06/2016 15:29:Darline Rodriguez RN) Inf Hx Chlamydia: No (09/06/2016 15:29:Darline Rodriguez RN) Inf Hx Syphilis: No (09/06/2016 15:29:Darline Rodriguez RN) Inf Hx HIV/AIDS: No (09/06/2016 15:29:Darline Rodriguez RN) Inf Hx Human Papilloma Virus: No (09/06/2016 15:29:Darline Rodriguez RN) Inf Hx Pt/Partner Genital Herpes: No (09/06/2016 15:29:Darline Rodriguez RN) Inf Hx Tuberculosis/Exposure: No (09/06/2016 15:29:Darline Rodriguez RN) Inf Hx Hepatitis B,C: No (09/06/2016 15:29:Darline Rodriguez RN) Inf Hx Rash or Viral Illness: No (09/06/2016 15:29:Darline Rodriguez RN) GENETIC HISTORY Gen Hx Age >=35 at LARRY: No (09/06/2016 15:29:Darline Rodriguez RN) Gen Hx Thalassemia: No (09/06/2016 15:29:Darline Rodriguez RN) Gen Hx Congenital Heart Defect: No (09/06/2016 15:29:Darline Rodriguez RN) Gen Hx Neural Tube Defect: No (09/06/2016 15:29:Darline Rodriguez RN) Gen Hx Down's Syndrome: No (09/06/2016 15:29:Darline Rodriguez RN) Gen Hx Teddy-Sachs: No (09/06/2016 15:29:Darline Rodriguez RN) Gen Hx Marie: No (09/06/2016 15:29:Darline Rodriguez RN) Gen Hx Familial Dysautonomia: No (09/06/2016 15:29:Darline Rodriguez RN) Gen Hx Sickle Cell Disease/Trait: No (09/06/2016 15:29:Darline Rodriguez RN) Gen Hx Hemophilia/Blood Disorder: No (09/06/2016 15:29:Darline Rodriguez RN) Gen Hx Muscular Dystrophy: No (09/06/2016 15:29:Darline Rodriguez RN) Gen Hx Cystic Fibrosis: No (09/06/2016 15:29:Darline Rodriguez RN) Gen Hx Huntingtons Chorea: No (09/06/2016 15:29:Darline Rodriguez RN) Gen Hx Mental Retardation/Autism: No (09/06/2016 15:29:Darline Rodriguez RN) Gen Hx Tested for Fragile X: No (09/06/2016 15:29:Darline Rodriguez RN) Gen Hx Other Inher/Chromosomal: No (09/06/2016 15:29:Darline Rodriguez RN) Gen Hx Maternal Metabolic DO: No (09/06/2016 15:29:Darline Rodriguez RN) Gen Hx Pt Father or FOB Defect: No (09/06/2016 15:29:Darline Rodriguez RN) Gen Hx Other Genetic History: No (09/06/2016 15:29:Darline Rodriguez RN) Gen Hx Drugs/Meds since LMP: No (09/06/2016 15:29:Darline oRdriguez RN)
--- NOTE | 2016-09-08 06:15 | L&D Flow Sheet ---
LD Flowsheet Datetime Report Generated by CPN: 09/08/2016 06:15 Datetime: 09/07/2016 18:30 Respirations: 18 (Jhonny Taylor RN) Pain Scale: 0 (Jhonny Taylor RN) Pain Presence: None/Denies (Jhonny Taylor RN)
--- NOTE | 2016-09-08 06:15 | L&D Care Plan ---
LD CARE PLANS Datetime Report Generated by CPN: 09/08/2016 06:15 Datetime: 09/06/2016 18:37 Pain State: Actual (Darline Rodriguez RN) Related To: Labor and Delivery Process; Treatment and Procedures (Darline Rodriguez RN) Goal(s): Patients Pain will be Assessed and Managed; Patient will Verbalize Adequate Relief of Pain or the Ability to [place] with Current Pain (Darline Rodriguez RN) Interventions: Assess Pain Severity on Scale of 0 (None) to 5 (Severe); Assess Type, Location and Intensity of Pain Each Time Client Reports Discomfort and Notify Provider if Unusal Pain Develops; Encourage Proper Breathing and Relaxation Techniques; Offer Alternatives Such as Repositioning, Calm Environment, Massages, Diversional Activities, Ice Pack, Splinting, and Ambulation; Administer Analgesics as Ordered; Assist with Epidural Placement as Appropriate; Evaluate Therapeutic Effectiveness of Medication and Treatments (Darline Rodriguez RN) Outcome: Patient will Report Absence or Relief of Pain Consistent with Established Pain Goal (Darline Rodriguez RN) Status: Ongoing (Darline Rodriguez RN) Outcome: Patient will have a Decrease in Signs and Symptoms of Discomfort (Darline Rodriguez RN) Status: Ongoing (Darline Rodriguez RN) Outcome: Pain will be Controlled During Procedures (Darline Rodriguez RN) Status: Ongoing (Darline Rodriguez RN) Anxiety State: Risk For (Darline Rodriguez RN) Related To: Labor and Delivery Process; Medical Interventions (Darline Rodriguez, KEVEN) Goal(s): Patient will have Decreased Anxiety and be able to Function at Acceptable Levels (Darline Rodriguez, KEVEN) Interventions: Assess Verbal and Nonverbal Behavioral Indicators of Anxiety; Assist Patient to Identify and Verbalize Symptoms of Anxiety; Identify and Demonstrate Techniques to Control Anxiety; Assist Patient with Coping Mechanisms to Manage Anxiety; Provide Theraputic Touch for the Patient; Explain to Patient, Using a Calm Reassuring Approach and Nonmedical Terms, All Activities, Procedures, and Concerns; Instruct Patient and Family about Post Discharge Care, Limitations, Symptoms to Report and Resources Available (Darline Rodriguez, KEVEN) Outcome: Patient will Identify, Verbalize and Demonstrate Techniques to Control Anxiety (Darline Rodriguez RN) Status: Ongoing (Darline Rodriguez RN) Outcome: Patient's Posture, Facial Expressions, Gestures and Activity Level will Reflect Decreased Anxiety (Darline Rodriguez RN) Status: Ongoing (Darline Rodriguez RN) Outcome: Patient will Verbalize a Sense of Control and/or Acceptance of the Situation (Darline Rodriguez RN) Status: Ongoing (Darline Rodriguez RN) Outcome: Patient will Identify and Utilize Support Person (Darline Rodriguez RN) Status: Ongoing (Darline Rodriguez RN) Knowledge Deficit State: Actual (Darline Rodriguez RN) Related To: Labor and Delivery Process; Treatment and Procedures (Darline Rodriguez RN) Goal(s): Patient will Accurately Verbalize Understanding of Plan of Care and Treatment; Patient and Family will Accurately Verbalize Understanding of the Disease Process (Darline Rodriguez RN) Interventions: Assess Motivation and Willingness of Patient/Family to Learn; Assess Preferred Learning Mode: One to One Instruction, Reading, Videos, Group Discussion or Demonstration; Assess Barriers to Learning: Pain, Emotional State, Language Barrier, Cognitive Impairment, Visual or Hearing Deficits; Assess Patient and Family Knowledge of Disease Process, Medications and Treatment; Discuss Therapy and/or Treatment Options, Describe Rationale Behind Management, Therapy and Treatment Recommendations; Instruct Patient and Family on Signs and Symptoms to Report; Instruct Patient and Family on Medication Effects and Side Effects; Provide Appropriate and Timely Education Using Multiple Techniques; Provide Patient and Family with Support Group Information and Resources; Give Clear and Thorough Explanations and Demonstrations (Darline Rodriguez RN) Outcome: Patient and Family will Verbalize Understanding of Condition, Treatment and Signs and Symptoms to Report (Darline Rodriguez RN) Status: Ongoing (Darline Rodriguez RN) Outcome: Patient will Identify Perceived Learning Needs and Express Motivation to Learn (Darline Rodriguez RN) Status: Ongoing (Darline Rodriguez RN) Outcome: Patient will Verbalize Understanding of Desired Content, and/or Performs Desired Skill Prior to Discharge (Darline Rodriguez RN) Status: Ongoing (Darline Rodriguez RN) Infection State: Risk For (Darline Rodriguez RN) Related To: Prolonged Labor or Induction (Darline Rodriguez RN) Goal(s): The Patient will be Free of Infection, Vital Signs Stable and Lab Work within Normal Parameters (Darline Rodriguez RN) Interventions: Instruct and Reinforce Proper Handwashing, Hygiene, and Care Techniques to Patient and Family; Monitor Vital Signs; Monitor Patient for the Following Signs of Infection: Fever, Abdominal Tenderness, Unusual Discharge; Monitor Aminiotic Fluid, Urine and Lochia for Color and Odor; Observe Wounds, Incisions and Invasive Line Sites for Redness, Drainage and Edema; Assess IV Sites per Hospital Policy; Monitor Lab and Test Results and Notify Provider of Abnormal Findings; Assess Nutritional Status and Promote Good Nutrition (Darline Rodriguez RN) Outcome: Patient will Remain Free of Infection (Darline Rodriguez RN) Status: Ongoing (Darline Rodriguez RN) Outcome: Infection will be Recognized Early to Allow for Prompt Treatment (Darline Rodriguez RN) Status: Ongoing (Darline Rodriguez RN) Outcome: Patient will have Vital Signs Within Expected Range (Darline Rodriguez RN) Status: Ongoing (Darline Rodriguez RN) Fluid Volume State: Risk For (Darline Rodriguez RN) Related To: Prolonged Labor or Induction (Darline Rodriguez RN) Goal(s): Patient will Achieve and Maintain a Balanced Fluid Volume Status; Hemodynamically Stable (Darline Rodriguez RN) Interventions: Monitor Vital Signs; Auscultate Breath Sounds; Monitor Patient for Skin Turgor, Mucous Membranes, Dry Skin, Weakness, Headaches and Confusion; Provide Oral Fluids as Ordered; Initiate and Maintain Intravenous Fluids as Ordered; Monitor Intake and Output as Indicated Per Patient Status; Accurately Measure Blood Loss; Monitor Lab and Test Results as Obtained and Notify Provider of Abnormal Findings; Monitor Patient's Weight (Darline Rodriguez RN) Outcome: Patient will have Clear Lung Sounds (Darline Rodriguez RN) Status: Ongoing (Darline Rodriguez RN) Outcome: Patient will have Vital Signs within Expected Range (Darline Rodriguez RN) Status: Ongoing (Darline Rodriguez RN) Outcome: Urine Output will be within Expected Range (Darline Rodriguez, RN) Status: Ongoing (Darline Rodriguez RN) Outcome: Patient will have Minimal Generalized or Upper Extremity Edema (Darline Rodriguez RN) Status: Ongoing (Darline Rodriguez RN) Injury State: Risk For (Darline Rodriguez RN) Related To: Labor and Delivery Process (Darline Rodriguez RN) Goal(s): Patient will Remain Free from Injury (Darline Rodriguez RN) Interventions: Monitoring as per Hospital Protocol; Assess Neurological Status; Perform Risk Assessment of Patients with Induction and ; Perform Fall Risk Assessment and Prevention per Hospital Protocol; Perform DVT Risk Assessment and Prophylaxis per Hospital Protocol; Ensure that Oxygen, Suction, and Resuscitation Medications and Equipment are Readily Available; Confirm Patient ID Prior to Procedure(s) and Medication Administration per Hospital Policy (Darline Rodriguez RN) Outcome: Successful Fall Risk Prevention (Darline Rodriguez RN) Status: Ongoing (Darline Rodriguez RN) Outcome: Patient will Deliver Infant without Adverse Sequela (Darline Rodriguez RN) Status: Ongoing (Darline Rodriguez RN) Outcome: Patient's Neurological Status will Remain Stable (Darline Rodriguez RN) Status: Ongoing (Darline Rodriguez RN) Impaired Skin Integrity State: Risk For (Darline Rodriguez RN) Related To: Vaginal Delivery (Darline Rodriguez, KEVEN) Goal(s): Patient will Maintain Optimal Skin Integrity, Free of Breakdown, Injury or Infection (Darline Rodriguez, KEVEN) Interventions: Complete Screening for Pressure Ulcer Risk and Initiate Protocol per Hospital Policy; Monitor Site of Skin Impairment for Color Changes, Redness, Swelling, Warmth, Pain or Other Signs of Infection; Encourage and Assist with Position Changes; Monitor Patient's Mobility Status; Provide Adequate Nutrition and Fluids; Teach Patient Appropriate Hygienic Care; Teach Patient/Family Skin Care Management (Darline Rodriguez, RN) Outcome: Patient will not have Evidence of Injury Such as Skin Breakdown, Scrapes, Cuts, or Bruising (Darline Rodriguez RN) Status: Ongoing (Darline Rodriguez, KEVEN) Outcome: Patient will Report Any Altered Sensation or Pain at Site of Skin Impairment (Darline Rodriguez RN) Status: Ongoing (Darline Rodriguez RN) Outcome: Patients Incisions and Wounds will be without Signs or Symptoms of Infection (Darline Rodriguez RN) Status: Ongoing (Darline Rodriguez RN) Outcome: Patient will Demonstrate Understanding of Plan to Heal Skin and Prevent Reinjury and Verbalize Risk Factors (Darline Rodriguez RN) Status: Ongoing (Darline Rodriguez, RN) Parenting Impaired State: Not Applicable (Darline Rodriguez, RN) Nutrition State: Not Applicable (Darline Rodriguez, RN) Grieving State: Not Applicable (Darline Michael, RN) Additional Care Plan State: Not Applicable (Darline Michael, RN)
[2016-09-08 07:34] LABS: HEMATOCRIT 25.2 % (36.0-47.0); HGB HCT DIFFERENCE 0.6; MEAN CORPUSCULAR HEMOGLOBIN 30.6 pg (27.0-33.4); MEAN CORPUSCULAR VOLUME 90 fl (80-97); RED BLOOD COUNT 2.81 10^6/uL (3.72-5.28); RED CELL DISTRIBUTION WIDTH 13.9 % (11.5-14.0); WHITE BLOOD COUNT 11.8 10^3/uL (4.0-10.5)
[2016-09-08 07:46] LABS: HEMOGLOBIN 8.6 g/dL (12.0-15.5)
[2016-09-08] MEDS: PRENATAL VITAMIN W-O CA NO5/FE FUMARATE/FA CAPSULE PO SCH (09:44)
[2016-09-08] MEDS: FERROUS SULFATE 325 MG TABLET PO SCH ×2 (09:44→18:58)
[2016-09-08] MEDS: SENNOSIDES/DOCUSATE 8.6-50 MG 1 EACH TABLET PO SCH (09:44)
[2016-09-08] MEDS: DOCUSATE SODIUM 100 MG CAPSULE PO SCH ×2 (09:44→18:58)
--- NOTE | 2016-09-08 11:54 | PDOC PROGRESS REPORT ---
Subjective-OB Subjective: Post Delivery Day: 20 year old. Denies any needs at this time bonding well with a bit teary since spouse is deploying tomorrow ff@[id number] mild lochia anticipate d/c in AM Physical Exam (OB) Vital Signs: Temp Pulse Resp BP Pulse Ox 98.3 F 98 16 110/60 98 09/08/16 07:41 09/08/16 07:41 09/08/16 07:41 09/08/16 07:41 09/08/16 07:41 Intake & Output 09/07/16 09/08/16 09/09/16 06:59 06:59 06:59 Intake Total 250 Balance 250 Weight 114 kg - Lochia Lochia Amount: Small 10-25 ml Lochia Color: Rubra/Red - Abdomen Description: Tender, Soft Hernia Present: No Fundal Description: Firm, Midline Fundal Height: u/u - u/2 Objective-Diagnostic Laboratory: 09/08/16 07:27 09/08/16 07:27 WBC 11.8 H RBC 2.81 L Hgb 8.6 L D Hct 25.2 L MCV 90 MCH 30.6 MCHC 34.0 RDW 13.9 Plt Count 207
[2016-09-09] MEDS: IBUPROFEN 800 MG TABLET PO SCH ×2 (01:05→09:47)
[2016-09-09 08:44] VITALS: BP 121/69
[2016-09-09] MEDS: PRENATAL VITAMIN W-O CA NO5/FE FUMARATE/FA CAPSULE PO SCH (09:48)
[2016-09-09] MEDS: DOCUSATE SODIUM 100 MG CAPSULE PO SCH (09:48)
[2016-09-09] MEDS: SENNOSIDES/DOCUSATE 8.6-50 MG 1 EACH TABLET PO SCH (09:48)
[2016-09-09] MEDS: FERROUS SULFATE 325 MG TABLET PO SCH (09:48)
--- NOTE | 2016-09-09 10:36 | PDOC DISCHARGE SUMMARY ---
Final Diagnosis Discharge Date: 09/09/16 - Final Diagnosis (1) Anemia due to acute blood loss Is this a current diagnosis for this admission?: Yes (2) Vaginal delivery Is this a current diagnosis for this admission?: Yes Discharge Data - Discharge Medication Home Medications: Acetaminophen [Tylenol] 1 tab PO PRN PRN 09/06/16 Reason(s) for Admission: Induction of Labor Procedures: None, NST Intrapartum Procedure(s): Spontaneous Vaginal Delivery Complication(s): Laceration-Vaginal Laceration-Degree: 1st - Diagnosis Test Laboratory: Temp Pulse Resp BP Pulse Ox 97.4 F 86 18 121/69 100 09/09/16 08:01 09/09/16 08:01 09/09/16 08:01 09/09/16 08:01 09/09/16 08:01 09/06/16 09/06/16 09/08/16 15:11 18:35 07:27 RBC 3.67 L 2.81 L Hgb 11.0 L 8.6 L D Hct 33.2 L 25.2 L Urine Opiates Screen NEGATIVE - Discharge information/Instructions Discharge Activity: Activity As Tolerated, No Lifting Over 10 Pounds, Pelvic Rest, No tub bath Discharge Diet: Regular Disposition: HOME, SELF-CARE Follow [facility] with: [facility] in: 4, Weeks
== END 2016-09-09 12:30 | disposition home or self-care (01) | DRG 775 ==
LOC: LC 15:10 → LR 17:56 → 2S 09-07 19:15
PROVIDERS: ADMIT Student in an Organized Health Care Education/Training Program; ATTEND Student in an Organized Health Care Education/Training Program
PROC: 10907ZC Drainage of Amniotic Fluid, Therapeutic from Products of Conception, Via Natural or Artificial Opening (ICD-10-PCS; principal; 2016-09-07)
PROC: 10E0XZZ Delivery of Products of Conception, External Approach (ICD-10-PCS; 2016-09-07)
PROC: 0HQ9XZZ Repair Perineum Skin, External Approach (ICD-10-PCS; 2016-09-07)
DX: O48.0 Post-term pregnancy (principal); O71.4 Obstetric high vaginal laceration alone; D62 Acute posthemorrhagic anemia; Z3A.40 40 weeks gestation of pregnancy; O99.824 Streptococcus B carrier state complicating childbirth; O69.1XX0 Labor and delivery complicated by cord around neck, with compression, not applicable or unspecified; Z37.0 Single live birth
CPT/HCPCS: 36415; 59025; 80307; 81005; 85025; 85027; 86592; 86850; 86900; 86901; 94760; C1726; J2300; J2405; J2540; J2590; J3490

== ENCOUNTER 2018-05-08 12:36 | Emergency (ER) | payer OTHER ==
[2018-05-08 12:45] VITALS: BP 145/82
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
== END 2018-05-08 13:19 | disposition home or self-care (01) ==
LOC: ER 12:36
DX: T23.271A Burn of second degree of right wrist, initial encounter (principal); X08.8XXA Exposure to other specified smoke, fire and flames, initial encounter; Z91.018 Allergy to other foods
CPT/HCPCS: 99283

== ENCOUNTER 2018-08-19 05:58 | Emergency (ER) | payer OTHER ==
[2018-08-19 06:09] VITALS: BP 114/95
[2018-08-19 09:16] LABS: APPEARANCE,URINE SLIGHTLY-CLOUDY; BILIRUBIN,URINE NEGATIVE (NEGATIVE); COLOR,URINE YELLOW; GLUCOSE, URINE NEGATIVE (NEGATIVE); KETONES,URINE NEGATIVE (NEGATIVE); LEUKOCYTE ESTERASE,URINE NEGATIVE (NEGATIVE); NITRITE,URINE NEGATIVE (NEGATIVE); PROTEIN,URINE NEGATIVE (NEGATIVE); URINE SPECIFIC GRAVITY 1.024; UROBILINOGEN,URINE NEGATIVE mg/dL (<2.0)
--- NOTE | 2018-08-19 10:48 | ER Document Report ---
HPI - HPI Patient complains to provider of: Dysuria, sore throat Time Seen by Provider: 08/19/18 08:06 Pain Level: 2 Context: Patient is a 22-year-old female presents to the emergency department for frequent urination. Patient states intermittently she does also have dysuria for the last 24 hours. Patient states she also has a cough, congestion, sore throat for the last 2 days. Patient is denying any fever. Patient is denying any abdominal pain, chest pain, shortness of breath, back pain. Past medical history: None Medications: None Allergies: Cinnamon Patient is unsure of her last menstrual period - CONSTITUTIONAL Constitutional: DENIES: Fever, Chills - EENT EENT: REPORTS: Sore Throat, Ear Pain - left ear, Eye problems - NEURO Neurology: REPORTS: Headache. DENIES: Weakness, Vision blurred, Dizzinesss / Vertigo - CARDIOVASCULAR Cardiovascular: DENIES: Chest pain - RESPIRATORY Respiratory: REPORTS: Coughing. DENIES: Trouble Breathing - GASTROINTESTINAL Gastrointestinal: DENIES: Abdominal Pain, Black / Bloody Stools - URINARY Urinary: REPORTS: Urgency - frequent UTIs, Frequency. DENIES: Dysuria - REPRODUCTIVE Reproductive: REPORTS: Abnormal bleeding / discharge - creamy white. DENIES: : Past Medical History - General Information source: Patient - Social History Smoking Status: Never Smoker Chew tobacco use (# tins/day): No Frequency of alcohol use: Occasional Family History: Reviewed & Not Pertinent Patient has suicidal ideation: No Patient has homicidal ideation: No Renal/ Medical History: Denies: Hx Peritoneal Dialysis Vertical Provider Document - CONSTITUTIONAL Agree With Documented VS: Yes Notes: GENERAL: Alert, interacts well. No acute distress. HEAD: Normocephalic, atraumatic. No frontal or maxillary sinus tenderness noted EYES: Pupils equal, round, and reactive to light. Extraocular movements intact. ENT: Oral mucosa moist, tongue midline. Nares patent, TM's intact, nonerythematous, nonbulging bilaterally. Pharynx erythematous, no palatal petechiae or exudate noted tonsils +2 bilaterally NECK: Full range of motion. Supple. Trachea midline. LUNGS: Clear to auscultation bilaterally, no wheezes, rales, or rhonchi. No respiratory distress. HEART: Regular rate and rhythm. No murmur ABDOMEN: Soft, non-tender. Non-distended. Bowel sounds present in all 4 quadrants. EXTREMITIES: Moves all 4 extremities spontaneously. No edema, normal radial and dorsalis pedis pulses bilaterally. No cyanosis. BACK: no cervical, thoracic, lumbar midline tenderness. No saddle anesthesia, normal distal neurovascular exam. No CVA tenderness noted bilaterally NEUROLOGICAL: Alert and oriented x3. Normal speech. cranial nerves II through XII grossly intact. PSYCH: Normal affect, normal mood. SKIN: Warm, dry, normal turgor. No rashes or lesions noted. - INFECTION CONTROL TRAVEL OUTSIDE OF THE [place] IN LAST 30 DAYS: No Course - Re-evaluation Re-evalutation: 08/19/18 10:45 Patient is in the emergency room with HER-2 children for similar URI symptoms. Patient's daughter did test positive for influenza A. Patient's urine shows no signs of infection, hCG negative, rapid strep test also negative. Discussed likely viral diagnosis with patient at bedside. Discussed close follow-up with primary care provider. Patient stable for discharge. - Vital Signs Vital signs: Temp Pulse Resp BP Pulse Ox 98.2 F 102 H 18 114/95 H 99 08/19/18 06:07 08/19/18 06:07 08/19/18 06:07 08/19/18 06:07 08/19/18 06:07 Discharge - Discharge Clinical Impression: Dysuria Upper respiratory infection Qualifiers: URI type: unspecified viral URI Qualified Code(s): J06.9 - Acute upper respiratory infection, unspecified Condition: Stable Disposition: HOME, SELF-CARE Instructions: Upper Respiratory Illness ([facility]), Influenza ([facility]) [id number], Viral Syndrome ([facility]) Additional Instructions: As we discussed you have been seen and treated in the emergency department for an upper respiratory infection and urinary frequency. Your urine shows no signs of infection at this time. Please stay well-hydrated at home. Please also treat your generalized body aches, fevers, upper respiratory symptoms with [id number] Tylenol and Motrin. Please make an appointment with your primary care provider in the next 24-48 hours. Please return to the emergency room for any other concerning symptoms.
== END 2018-08-19 11:07 | disposition home or self-care (01) ==
LOC: ER 05:58
DX: R30.0 Dysuria (principal); J06.9 Acute upper respiratory infection, unspecified; B97.89 Other viral agents as the cause of diseases classified elsewhere; R35.0 Frequency of micturition; R05 Cough; J02.9 Acute pharyngitis, unspecified; H92.02 Otalgia, left ear; N89.8 Other specified noninflammatory disorders of vagina; R39.15 Urgency of urination; Z87.440 Personal history of urinary (tract) infections; Z91.018 Allergy to other foods
CPT/HCPCS: 81001; 81025; 87070; 87077; 87086; 87088; 87186; 87880; 99283

== ENCOUNTER 2018-10-16 11:42 | Emergency (ER) | payer OTHER ==
[2018-10-16] MEDS ORDERED: LIDOCAINE 4%/TETRACAINE 0.5%/EPI 0.18% 5 ML TOPICAL SOLN TOP ONE (12:05)
--- NOTE | 2018-10-16 12:05 | ER Document Report ---
ED Medical Screen (RME) - General Chief Complaint: Skin Problem Stated Complaint: SKIN ISSUE Time Seen by Provider: 10/16/18 12:01 TRAVEL OUTSIDE OF THE [place] IN LAST 30 DAYS: No - HPI Notes: 10/16/18 12:03 Patient is a 22-year-old female, recently diagnosed with MRSA few weeks ago for abscess on her leg, who presents the emergency department complaining of a chin abscess that started over the last 4-5 days. Patient states that it is red and painful and has been draining. Denies SOTO, fever, neck pain, URI, CP, SOB, Abd pain. I have treated and performed a rapid initial assessment of this patient. A comprehensive ED assessment and evaluation of the patient, analysis of test results and completion of medical decision making process will be conducted by additional ED providers. PHYSICAL EXAMINATION: GENERAL: Well-appearing, well-nourished and in no acute distress. A&Ox4. Answers questions appropriately. LUNGS: Breath sounds clear to auscultation bilaterally and equal. No wheezes rales or rhonchi. HEART: Regular rate and rhythm without murmurs, rubs, gallops. Skin: there is a small area of fluctuance palpated within an area of induration to the chin with erythema and tenderness associated. Scant discharge noted w/o streaks. - Related Data Allergies/Adverse Reactions: cinnamon Allergy (Verified 09/06/16 15:19) Past Medical History Renal/ Medical History: Denies: Hx Peritoneal Dialysis Physical Exam - Vital signs Vitals: Temp Pulse Resp BP Pulse Ox 98.2 F 88 16 123/79 96 10/16/18 11:50 10/16/18 11:50 10/16/18 11:50 10/16/18 11:50 10/16/18 11:50 Course - Vital Signs Vital signs: Temp Pulse Resp BP Pulse Ox 98.2 F 88 16 123/79 96 10/16/18 11:50 10/16/18 11:50 10/16/18 11:50 10/16/18 11:50 10/16/18 11:50
--- NOTE | 2018-10-16 14:51 | ER Document Report ---
Addendum entered and electronically signed by KESHAWN RODRIGUEZ PA-C 10/16/18 15:08: Discharge - Discharge Clinical Impression: Abscess, Anemia due to acute blood loss Condition: Good Disposition: HOME, SELF-CARE Instructions: Abscess ([facility]), Cephalexin ([facility]), MRSA Cellulitis ([facility]), Post Incision and Drainage, Trimethoprim-Sulfa ([facility]) Additional Instructions: Home and use warm moist compresses 3-4 times a day to keep the area open and draining. Use water just as warm from the tap and she can stand it do not put in the microwave do not use Tums to pick it up and place it up on your chin. You may try to aspirate some more of the pus out of there by applying pressure to the bottom sides and pushing downward out. You may wash with the antibacterial soap that have given you both you and your daughter will benefit from this and get his approximately 50% of staff on your skin therefore reducing the amount of chance that you have again is back again. Should you have any concerns or problems return to ER for recheck. Prescriptions: Cephalexin Monohydrate [Keflex 500 mg Capsule] 500 mg PO Q6H 5 Days #40 capsule Fluconazole [Diflucan] 150 mg PO ONCE PRN #1 tablet PRN Reason: Mupirocin [Bactroban 2% Ointment 22 gm] 1 applic TP TID #1 tube Sulfamethoxazole/Trimethoprim [Bactrim Ds Tablet] 1 each PO BID #20 tablet Referrals: JAYNA JOSHI PA [Primary Care Provider] - Follow up as needed Addendum entered and electronically signed by KESHAWN RODRIGUEZ PA-C 10/16/18 15:06: Discharge - Discharge Clinical Impression: Abscess, Anemia due to acute blood loss Condition: Good Disposition: HOME, SELF-CARE Instructions: Abscess ([facility]), Cephalexin ([facility]), MRSA Cellulitis ([facility]), Post Incision and Drainage, Trimethoprim-Sulfa ([facility]) Additional Instructions: Home and use warm moist compresses 3-4 times a day to keep the area open and draining. Use water just as warm from the tap and she can stand it do not put in the microwave do not use Tums to pick it up and place it up on your chin. You may try to aspirate some more of the pus out of there by applying pressure to the bottom sides and pushing downward out. You may wash with the antibacte rial soap that have given you both you and your daughter will benefit from this and get his approximately 50% of staff on your skin therefore reducing the amount of chance that you have again is back again. Should you have any concerns or problems return to ER for recheck. Prescriptions: Cephalexin Monohydrate [Keflex 500 mg Capsule] 500 mg PO Q6H 5 Days #40 capsule Fluconazole [Diflucan] 150 mg PO ONCE PRN #1 tablet PRN Reason: Mupirocin [Bactroban 2% Ointment 22 gm] 1 applic TP TID #1 tube Sulfamethoxazole/Trimethoprim [Bactrim Ds Tablet] 1 each PO BID #20 tablet Referrals: JAYNA JOSHI PA [Primary Care Provider] - Follow up as needed Original Note: ED Skin Rash/Insect Bite/Abscs - General Chief Complaint: Skin Problem Stated Complaint: SKIN ISSUE Time Seen by Provider: 10/16/18 12:01 Primary Care Provider: JAYNA JOSHI PA [Primary Care Provider] - Follow up as needed Mode of Arrival: Ambulatory Information source: Patient Notes: Patient is a 22-year-old female comes to the emergency room with her daughter and . Patient states that about 3 to 4 weeks ago she had an abscess on her leg that turned out to be methicillin-resistant staph aureus. Her primary put her on a antibiotic and then did an I&D when it came back it was methicillin-resistant staph and he put her on the pill that was white and it went away. Patient comes back today stating that for 5 days ago she had another one pop up on her chin she attempted to pop it a couple times and it is only gotten worse. Today she popped it again a large amount of pus out of it and is still draining. She states it was right on the bottom of the chin. She also brings her daughter in toe who has an abscess on her left posterior thigh. TRAVEL OUTSIDE OF THE [place] IN LAST 30 DAYS: No - HPI Patient complains to provider of: Tender/swollen area Onset: Other Onset/Duration: Gradual, Persistent - 4 to 5 days Quality of pain: Cramping, Fullness, Pressure, Stabbing, Throbbing Severity: Moderate Pain Level: 3 Skin Character: Abscess, Erythema, Thickening Skin Temperature: Warm Quality of rash: Itchy, Painful Identify cause: No Exacerbated by: Denies Relieved by: Denies Similar symptoms previously: Yes Recently seen / treated by doctor: Yes - Related Data Allergies/Adverse Reactions: cinnamon Allergy (Verified 09/06/16 15:19) Past Medical History - General Information source: Patient, Relative - Social History Smoking Status: Unknown if Ever Smoked Cigarette use (# per day): No Chew tobacco use (# tins/day): No Smoking Education Provided: No Frequency of alcohol use: None Drug Abuse: None Lives with: Family Family History: Reviewed & Not Pertinent Patient has suicidal ideation: No Patient has homicidal ideation: No Renal/ Medical History: Denies: Hx Peritoneal Dialysis Review of Systems - Review of Systems -: Yes ROS unobtainable due to patient's medical condition Constitutional: No symptoms reported EENT: No symptoms reported Cardiovascular: No symptoms reported Respiratory: No symptoms reported Gastrointestinal: No symptoms reported Genitourinary: No symptoms reported Female Genitourinary: No symptoms reported Musculoskeletal: No symptoms reported Skin: Lumps, Other - Abscess/on chin Hematologic/Lymphatic: No symptoms reported Neurological/Psychological: No symptoms reported -: Yes All other systems reviewed and negative Physical Exam - Vital signs Vitals: Temp Pulse Resp BP Pulse Ox 98.2 F 88 16 123/79 96 10/16/18 11:50 10/16/18 11:50 10/16/18 11:50 10/16/18 11:50 10/16/18 11:50 Interpretation: Normal Notes: PHYSICAL EXAMINATION: GENERAL: Well-appearing, well-nourished and in no acute distress. HEAD: normocephalic. Examination of patient's head and face showed she has a small deformity of the right side of her lower chin. There is moderate erythema with some tenderness to palpation. There is a central hole that is draining slightly at this time. Application of pressure applied to both sides of the area does aspirate a small amount of pus still. EYES: Pupils equal round and reactive to light, extraocular movements intact, conjunctiva are normal. ENT: Nares patent, oropharynx clear without exudates. Moist mucous membranes. NECK: Normal range of motion, supple without lymphadenopathy LUNGS: Breath sounds clear to auscultation bilaterally and equal. No wheezes rales or rhonchi. HEART: Regular rate and rhythm without murmurs ABDOMEN: Soft, nontender, nondistended abdomen. No guarding, no rebound. No masses appreciated. Female : deferred Musculoskeletal: Normal range of motion, no pitting or edema. No cyanosis. NEUROLOGICAL: Cranial nerves grossly intact. Normal speech, normal gait. Normal sensory, motor exams PSYCH: Normal mood, normal affect. SKIN: Warm, Dry, normal turgor, no rashes or lesions noted. Course - Re-evaluation Re-evalutation: 10/16/18 14:51 Patient's side of the lower chin was basically open and draining on its own with a small amount of pressure while feeling it aspirated a slight amount more not an eye by any means at this time. Patient will continue with warm moist compresses which she has not been doing lately we will put her back on antibiotics which I will include Bactrim and Keflex and Diflucan,. Patient will continue to use warm moist compresses 3-4 times a day to see if we can keep it draining. If she has any problems with the draining given that she is on antibiotics already she will return to ER for recheck. 10/16/18 14:52 - Vital Signs Vital signs: Temp Pulse Resp BP Pulse Ox 98.2 F 88 16 123/79 96 10/16/18 11:50 10/16/18 11:50 10/16/18 11:50 10/16/18 11:50 10/16/18 11:50 Discharge - Discharge Clinical Impression: (Ruled Out): Vaginal delivery, Anemia due to acute blood loss Condition: Good Disposition: HOME, SELF-CARE Instructions: Abscess ([facility]), Cephalexin ([facility]), MRSA Cellulitis ([facility]), Post Incision and Drainage, Trimethoprim-Sulfa ([facility]) Additional Instructions: Home and use warm moist compresses 3-4 times a day to keep the area open and draining. Use water just as warm from the tap and she can stand it do not put in the microwave do not use Tums to pick it up and place it up on your chin. You may try to aspirate some more of the pus out of there by applying pressure to the bottom sides and pushing downward out. You may wash with the antibacterial soap that have given you both you and your daughter will benefit from this and get his approximately 50% of staff on your skin therefore reducing the amount of chance that you have again is back again. Should you have any concerns or problems return to ER for recheck. Prescriptions: Cephalexin Monohydrate [Keflex 500 mg Capsule] 500 mg PO Q6H 5 Days #40 capsule Fluconazole [Diflucan] 150 mg PO ONCE PRN #1 tablet PRN Reason: Sulfamethoxazole/Trimethoprim [Bactrim Ds Tablet] 1 each PO BID #20 tablet Referrals: JAYNA JOSHI PA [Primary Care Provider] - Follow up as needed
[2018-10-16 14:55] VITALS: BP 103/68
== END 2018-10-16 14:58 | disposition home or self-care (01) ==
LOC: ER 11:42
DX: L02.01 Cutaneous abscess of face (principal); D50.0 Iron deficiency anemia secondary to blood loss (chronic); Z86.14 Personal history of Methicillin resistant Staphylococcus aureus infection
CPT/HCPCS: 99283